=== PATIENT | male | born 1940 | race Caucasian/White ===

== ENCOUNTER 2016-10-02 02:27 | Observation (INO) | payer OTHER ==
[~2016-10-02] VITALS: Ht 165.1 cm; Wt 90.0 kg
[2016-10-02] VITALS (8 sets, daily range): BP systolic 113–166; BP diastolic 66–91; PULSE 67–84; RESP 16–20; TEMP 96.1–98.8; O2SAT 94–97
[~2016-10-02 02:27] MED LIST: ALBU0.08 NEB; ALPR.25 PO; AMLO5 PO; CARV6.25 PO; COUM4TAB PO; COUM5TAB PO; CYAN100025 SL; FURO1TAB60 PO; GABA600T PO; GLUC1000 PO; MAGN400T2 PO; NITR1SUB3 SL; NOVORP2 SQ; POTA1TAB4 PO; PROT40TA PO; RAMI5CAP PO; SERT-132 PO; TAMS5CAP PO; VITA10003 PO
[2016-10-02] MEDS ORDERED: SODIUM CHLORIDE 0.9% FLUSH 5 ML FLUSH IVF PRN (02:45)
--- NOTE | 2016-10-02 02:56 | PD ---
HPI Chief Complaint: Altered Mental Status Time Seen by Provider: 02:41 Travel History International Travel<30 days: No Contact w/Intl Traveler<30days: No Traveled to known affect area: No History of Present Illness HPI 76-year-old male with history of previous stroke with mild left-sided deficits, presents to the ER today brought in by EMS because patient has been having episodes of disorientation according to his . Patient denies any issues on initial evaluation. has stated that the patient has been having childlike behavior at times. This is a difference from baseline. Modifying Factors: None Associated Signs & Symptoms: Intermittent disorientation Risk Factors: Previous stroke PFSH Past Medical History Hx Anticoagulant Therapy: Yes Anemia: Yes Arthritis: Yes Asthma: No Atrial Fibrillation: Yes Autoimmune Disease: No Blood Disorders: No Anxiety: No Depression: No Heart Rhythm Problems: No Cancer: Yes (SKIN CANCER) Cardiac Catheterization: Yes Cardiovascular Problems: Yes High Cholesterol: Yes Chemotherapy: No Chest Pain: No Congestive Heart Failure: Yes COPD: Yes Cerebrovascular Accident: No Coronary Artery Disease: Yes Diabetes: Yes (TYPE 2) Patient Takes Glucophage: No Diminished Hearing: Yes Endocrine: Yes Gastrointestinal Disorders: Yes (DM, GERD) GERD: Yes Glaucoma: Yes ("GOING BLIND") Genitourinary: No Headaches: Yes Hepatitis: No Hiatal Hernia: No Heparin Induced Thrombocytopen: No Hypertension: Yes Immune Disorder: No Implanted Vascular Access Dvce: Yes Kidney Stones: No Medical other: Yes (ELEVATED CHOLESTEROL, AAA, RESTLESS LEG SYNDROME, ) Musculoskeletal: Yes Neurologic: Yes Reproductive: No Respiratory: Yes Immunizations Current: Yes Migraines: No Myocardial Infarction: Yes (X 3) Radiation Therapy: No Renal Failure: No Seizures: No Shingles: Yes Sickle Cell Disease: No Sleep Apnea: No Thyroid Disease: Yes (THYROID NODULE) Triglycerides - High: Yes Ulcer: Yes Tetanus Vaccination: > 5 Years Influenza Vaccination: Yes PNEUMOCCOCAL Vaccine (Year): 2 Past Surgical History Abdominal Surgery: No AICD: No Appendectomy: No Arteriovenous Shunt: No Body Medical Devices: STENTS X 6 AND MECHANICAL VALVE Cardiac Surgery: Yes (sep 26 2000 aortic valve replacement [facility]) Cholecystectomy: No Coronary Artery Bypass Graft: Yes (TRIPLE BYPASS, REPLACED AORTIC VALVE IN 2000 ) Coronary Stent: Yes (UNKOWN AMOUNT OF STENTS PLACED ? 6) Ear Surgery: No Endocrine Surgery: No Eye Surgery: No Genitourinary Surgery: No Gynecologic Surgery: No Insulin Pump: No Joint Replacement: No Neurologic Surgery: No Oral Surgery: No Pacemaker: No Thoracic Surgery: No Valve Replacement: Yes (AORTIC) Other Surgery: Yes (OPEN HEART SURGERY ,AORTIC VALVE REPLACEMENT 2004) Family History Family Myocardial Infarction: Yes (MOTHER) Social History Alcohol Use: No Tobacco Use: No Substance Use: No Allergies-Medications (Allergen,Severity, Reaction): Coded Allergies: Morphine (Verified Allergy, Severe, "I GO CRAZY", 07/14/16) Nonsteroidal Anti-Inflammatory Agts (Verified Allergy, Severe, 07/14/16) CAN NOT TAKE BC HIS KIDNEYS ARE NOT FX CORRECTLY Penicillin (Verified Allergy, Severe, "I GO CRAZY", 07/14/16) Vistaril (Verified Allergy, Severe, Tachycardia, 07/14/16) Haldol (Verified Allergy, Unknown, UNKNOWN, 07/14/16) Codeine (Verified Adverse Reaction, Intermediate, "LOOPY", 07/14/16) MRI PRECAUTION (Verified Adverse Reaction, Unknown, 04/06/04 (ME) PER SARIAH DONOHUE CLEARED PT ( PT CLAUSTO), 07/14/16) Reported Meds & Prescriptions Reported Meds & Active Scripts Active Reported Atorvastatin (Atorvastatin Calcium) 80 Mg Tab 80 Mg PO DAILY Isosorbide Mononitrate ER (Isosorbide Mononitrate) 60 Mg Tab 60 Mg PO DAILY Xanax (Alprazolam) 0.25 Mg Tab 0.25 Mg PO Q8H PRN Sertraline (Sertraline HCl) 50 Mg Tab 50 Mg PO DAILY Ramipril 5 Mg Cap 5 Mg PO DAILY Protonix (Pantoprazole Sodium) 40 Mg Tab 40 Mg PO DAILY Lasix (Furosemide) 40 Mg Tab 40 Mg PO DAILY K-Tab (Potassium Chloride) 20 Meq Tab 20 Meq PO BID Glucophage (Metformin HCl) 1,000 Mg Tab 1,000 Mg PO BIDPC With a meal Gabapentin 600 Mg Tab 300 Mg PO QID Flomax (Tamsulosin HCl) 0.4 Mg Cap 0.4 Mg PO HS Vitamin D-3 (Cholecalciferol) 1,000 Unit Tab 2,000 Units PO DAILY Coreg (Carvedilol) 6.25 Mg Tab 3.125 Mg PO BID Novolin R Inj (Insulin Human Regular) 1,000 Unit/10 Ml Vial 0 SQ DIRECTED Sliding Scale As Directed. Nitroglycerin SL (Nitroglycerin) 0.4 Mg Subl 0.4 Mg SL DIRECTED PRN ONE TABLET UNDER THE TONGUE NEEDED FOR CHEST PAIN, MAY REPEAT EVERY FIVE MINUTES FOR A TOTAL OF 3 DOSES OR CALL 911 IF NO RELIEF Magnesium Oxide 400 Mg Tab 400 Mg PO BID B-12 (Cyanocobalamin) 1,000 Mcg Subl 1,000 Mcg SL DAILY Coumadin (Warfarin) 4 Mg Tab 4 Mg PO DIRECTED Coumadin (Warfarin) 5 Mg Tab 5 Mg PO DIRECTED Review of Systems ROS Limitations: Altered Mental Status Except as stated in HPI: all other systems reviewed are Neg Physical Exam Narrative GENERAL: Well-nourished, well-developed elderly white male patient in no acute distress. Awake, alert, oriented 3. SKIN: Warm and dry. HEAD: Normocephalic. EYES: No scleral icterus. No injection or drainage. NECK: Supple, trachea midline. CARDIOVASCULAR: Regular rate and rhythm without murmurs, gallops, or rubs. RESPIRATORY: Breath sounds equal bilaterally. No accessory muscle use. GASTROINTESTINAL: Abdomen soft, non-tender, nondistended. MUSCULOSKELETAL: No cyanosis, or edema. BACK: Nontender without obvious deformity. No CVA tenderness. NEUROLOGICAL: Awake and alert. Mild left facial droop. Mild left sided weakness. Normal speech. Data Data Last Documented VS Vital Signs Date Time Temp Pulse Resp B/P Pulse Ox O2 Delivery O2 Flow Rate FiO2 10/02/16 04:52 84 16 123/75 96 Room Air 10/02/16 02:30 98.1 Orders Electrocardiogram (10/02/16 02:37) Alcohol (Ethanol) (10/02/16 02:37) Ammonia (10/02/16 02:37) Complete Blood Count With Diff (10/02/16 02:37) Comprehensive Metabolic Panel (10/02/16 02:37) Drug Screen, Random Urine (10/02/16 02:37) Prothrombin Time / Inr (Pt) (10/02/16 02:37) Act Partial Throm Time (Ptt) (10/02/16 02:37) Troponin I (10/02/16 02:37) Thyroid Stimulating Hormone (10/02/16 02:37) Lactic Acid Sepsis Protocol (10/02/16 02:37) Urinalysis - C+S If Indicated (10/02/16 02:37) Blood Culture (10/02/16 02:37) Chest, Single Ap (10/02/16 02:37) Ct Brain W/O Iv Contrast(Rout) (10/02/16 02:37) Blood Glucose (10/02/16 02:37) Ecg Monitoring (10/02/16 02:37) Iv Access Insert/Monitor (10/02/16 02:37) Cath For Specimen (10/02/16 02:37) Oximetry (10/02/16 02:37) Sodium Chloride 0.9% Flush (Ns Flush) (10/02/16 02:45) Admit Order (Ed Use Only) (10/02/16 04:57) Labs Laboratory Tests Test 10/02/16 10/02/16 10/02/16 02:47 02:50 02:54 Sodium Level 141 MEQ/L Potassium Level 3.3 MEQ/L Chloride Level 104 MEQ/L Carbon Dioxide Level 26.7 MEQ/L Anion Gap 10 MEQ/L Blood Urea Nitrogen 18 MG/DL Creatinine 0.91 MG/DL Estimat Glomerular Filtration 81 ML/MIN Rate Random Glucose 142 MG/DL Calcium Level 9.3 MG/DL Total Bilirubin 0.7 MG/DL Aspartate Amino Transf 17 U/L (AST/SGOT) Alanine Aminotransferase 18 U/L (ALT/SGPT) Alkaline Phosphatase 129 U/L Troponin I 0.03 NG/ML Total Protein 7.2 GM/DL Albumin 3.6 GM/DL Thyroid Stimulating Hormone 2.100 uIU/ML 3rd Gen Ethyl Alcohol Level LESS THAN 3 MG/DL White Blood Count 9.6 TH/MM3 Red Blood Count 5.56 MIL/MM3 Hemoglobin 14.9 GM/DL Hematocrit 45.1 % Mean Corpuscular Volume 81.0 FL Mean Corpuscular Hemoglobin 26.7 PG Mean Corpuscular Hemoglobin 33.0 % Concent Red Cell Distribution Width 15.5 % Platelet Count 220 TH/MM3 Mean Platelet Volume 9.9 FL Neutrophils (%) (Auto) 66.0 % Lymphocytes (%) (Auto) 23.1 % Monocytes (%) (Auto) 8.4 % Eosinophils (%) (Auto) 1.3 % Basophils (%) (Auto) 1.2 % Neutrophils # (Auto) 6.4 TH/MM3 Lymphocytes # (Auto) 2.2 TH/MM3 Monocytes # (Auto) 0.8 TH/MM3 Eosinophils # (Auto) 0.1 TH/MM3 Basophils # (Auto) 0.1 TH/MM3 CBC Comment DIFF FINAL Differential Comment Prothrombin Time 20.6 SEC Prothromb Time International 1.8 RATIO Ratio Activated Partial 25.4 SEC Thromboplast Time Urine Color LIGHT-YELLOW Urine Turbidity CLEAR Urine pH 7.0 Urine Specific [place] 1.008 Urine Protein NEG mg/dL Urine Glucose (UA) NEG mg/dL Urine Ketones NEG mg/dL Urine Occult Blood NEG Urine Nitrite NEG Urine Bilirubin NEG Urine Urobilinogen LESS THAN 2.0 MG/DL Urine Leukocyte Esterase NEG Urine WBC LESS THAN 1 /hpf Microscopic Urinalysis Comment CATH-CULT NOT IND Urine Opiates Screen NEG Urine Barbiturates Screen NEG Urine Amphetamines Screen NEG Urine Benzodiazepines Screen NEG Urine Cocaine Screen NEG Urine Cannabinoids Screen NEG Ammonia 10 MCMOL/L MDM Medical Decision Making Medical Screen Exam Complete: Yes Emergency Medical Condition: Yes Medical Record Reviewed: Yes Interpretation(s) Laboratory Tests Test 10/02/16 10/02/16 10/02/16 02:47 02:50 02:54 Potassium Level 3.3 MEQ/L (3.5-5.1) Estimat Glomerular Filtration 81 ML/MIN (>89) Rate Random Glucose 142 MG/DL (74-106) Alkaline Phosphatase 129 U/L (45-117) Mean Corpuscular Hemoglobin 26.7 PG (27.0-34.0) Monocytes (%) (Auto) 8.4 % (0.0-8.0) Prothrombin Time 20.6 SEC (9.8-11.6) Ammonia 10 MCMOL/L (11-32) Differential Diagnosis Altered mental statusacute CVA versus metabolic issues versus dehydration versus sepsis Narrative Course Lab work did not show any signs of significant metabolic issues. Vital signs are stable in the ER. CT the brain is negative. Patient's comes in and I talked her further and it appears that she feels that he was more lethargic before she called EMS and she was concerned that he may have had a TIA. At this point, my plan would be to admit the patient for further observation. Case is discussed with Dr. Gurrola for admission. Diagnosis Primary Impression: ALTERED MENTAL STATUS, UNSPECIFIED Admitting Information Admitting Physician Requests: Admit Prachi Alejandro MD Oct 02, 2016 02:56
[2016-10-02] MEDS ORDERED: ISOS60TA PO (03:24)
[2016-10-02] MEDS ORDERED: ATOR1TAB18 PO (03:24)
[2016-10-02 03:28] LABS: AUTOMATED NEUTROPHIL # 6.4 TH/MM3 (1.8-7.7); BASOPHIL # 0.1 TH/MM3 (0-0.2); BASOPHIL % 1.2 % (0.0-2.0); EOSINOPHIL # 0.1 TH/MM3 (0-0.4); EOSINOPHIL % 1.3 % (0.0-4.0); HEMATOCRIT 45.1 % (39.0-51.0); HEMO FLAGS DIFF FINAL; LYMPH % 23.1 % (9.0-44.0); LYMPHOCYTE # 2.2 TH/MM3 (1.0-4.8); MEAN CORPUSCULAR HEMOGLOBIN 26.7 PG (27.0-34.0); MONO % 8.4 % (0.0-8.0); PLATELET COUNT 220 TH/MM3 (150-450); RED BLOOD COUNT 5.56 MIL/MM3 (4.50-5.90); RED CELL DISTRIBUTION WIDTH 15.5 % (11.6-17.2); WHITE BLOOD COUNT 9.6 TH/MM3 (4.0-11.0)
[2016-10-02 03:35] LABS: AMPHETAMINE, URINE NEG (NEG); BARBITURATES, URINE NEG (NEG); COCAINE, URINE NEG (NEG)
[2016-10-02 03:36] LABS: BLOOD, URINE NEG (NEG); COMMENT (UR) CATH-CULT NOT IND; CULTURE IF INDICATED CATH CULTURE NOT IND; GLUCOSE,URINE NEG (NEG); KETONE, URINE NEG (NEG); NITRITE,URINE NEG (NEG); URINE COLOR LIGHT-YELLOW (YELLW/STRAW)
--- NOTE | 2016-10-02 03:41 | RADRPT ---
EXAM DATE/TIME: 10/02/2016 02:52 [facility] COMPARISON: CHEST SINGLE AP, June 30, 2016, 9:05. INDICATIONS : Syncopal episode. MEDICAL HISTORY : None. SURGICAL HISTORY : CABG. Valve repair ENCOUNTER: Initial ACUITY: 1 day PAIN SCORE: 0/10 LOCATION: Bilateral chest FINDINGS: The cardiac silhouette is normal in transverse diameter. Median sternotomy wires are present. There i s prominence of the aortic knob is with calcification characteristic of atherosclerotic vascular dise ase. The lungs are free of acute parenchymal opacity. No effusions are identified. Calcified granulom a is present in the right lung. CONCLUSION: 1. Cardiomegaly. No acute pulmonary disease. Trino Guillermo MD on October 02, 2016 at 3:40 Board Certified Radiologist. This report was verified electronically.
--- NOTE | 2016-10-02 03:47 | RADRPT ---
EXAM DATE/TIME: 10/02/2016 03:06 [facility] COMPARISON: CT BRAIN W/O CONTRAST, July 29, 2016, 8:06. INDICATIONS : Altered mental status. RADIATION DOSE: 56.35 CTDIvol (mGy) MEDICAL HISTORY : Cardiovascular disease. Chronic obstructive pulmonary disease. Diabetes mellitus type 2.Hypertension, ME, atrial fibrillation SURGICAL HISTORY : CABG aortic valve replacement, 6 coronary stents ENCOUNTER: Initial ACUITY: 1 day PAIN SCALE: Non-responsive LOCATION: cranial TECHNIQUE: Multiple contiguous axial images were obtained of the head. Using automated exposure control and adj ustment of the mA and/or kV according to patient size, radiation dose was kept as low as reasonably a chievable to obtain optimal diagnostic quality images. FINDINGS: Noncontrast axial head CT demonstrates the ventricles to be enlarged with a prominent sulcal pattern compatible with atrophy. No acute intracranial hemorrhage, acute cortical infarction, mass or midline shift is seen. There is old infarct in the right frontal region. Posterior fossa structures are unre markable. Bone windows demonstrate no abnormality. CONCLUSION: Atrophy. No evidence of acute intracranial pathology. Trino Guillermo MD on October 02, 2016 at 3:44 Board Certified Radiologist. This report was verified electronically.
[2016-10-02 03:49] LABS: APTT (PATIENT) 25.4 SEC (24.3-30.1); INTERNATIONAL NORMALIZED RATIO 1.8 RATIO; PROTHROMBIN TIME - PATIENT 20.6 SEC (9.8-11.6)
[2016-10-02 03:59] LABS: ALT (GPT) 18 U/L (12-78); ANION GAP 10 MEQ/L (5-15); AST (GOT) 17 U/L (15-37); BICARBONATE 26.7 MEQ/L (21.0-32.0); BLOOD UREA NITROGEN 18 MG/DL (7-18); CHLORIDE 104 MEQ/L (98-107); GLOMERULAR FILTRATION RATE 81 ML/MIN (>89); POTASSIUM 3.3 MEQ/L (3.5-5.1); SODIUM (NA) 141 MEQ/L (136-145)
[2016-10-02 04:09] LABS: ALKALINE PHOSPHATASE 129 U/L (45-117); TOTAL BILIRUBIN ADULT 0.7 MG/DL (0.2-1.0)
[2016-10-02] MEDS ORDERED: ACETAMINOPHEN 325 MG TAB PO PRN (05:15)
[2016-10-02] MEDS ORDERED: SODIUM CHLORIDE 0.9% FLUSH 5 ML FLUSH FLUSH PRN (05:15)
[2016-10-02] MEDS ORDERED: BISACODYL 10 MG SUPP PR PRN (05:15)
[2016-10-02] MEDS ORDERED: ONDANSETRON HCL 4 MG/2 ML VIAL IVP PRN (05:15)
--- NOTE | 2016-10-02 05:28 | HHI.HP ---
[facility] Service [facility] Primary Care Physician Non-Staff Admission Diagnosis altered mental status Diagnoses: (1) Encephalopathy Diagnosis: Principal (2) TIA (transient ischemic attack) Diagnosis: Principal (3) A-fib Diagnosis: Principal (4) Chronic anticoagulation Diagnosis: Principal (5) DM (diabetes mellitus) Diagnosis: Principal Travel History International Travel<30 Days: No Contact w/Intl Traveler <30 Da: No Traveled to Known Affected Are: No History of Present Illness This is a 76-year-old male with a PMH of HTN, A. 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 Per , pt has been "irritable" since yesterday, states he fell asleep abruptly while at breakfast and acting fidgety. No change in weakness/facial droop from previous CVA. Denies fever, chills, chest pain or seizure activity. On arrival , BP 166/84, HR 73, O2 sat 97% on RA, Afebrile. CBC essentially unremarkable. Chemistry unremarkable except for K+ 3.3. Trop 0.03. CXR and CT Head w/ no acute findings. Review of Systems Other ROS: 14 point review of systems otherwise negative. Past Family Social History Past Medical History PMH: HTN, A. 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, DM and CAD Past Surgical History PAST SURGICAL HISTORY: Cardiac Stent, Mechanical Aortic Valve, CABG Allergies: Coded Allergies: Morphine (Verified Allergy, Severe, "I GO CRAZY", 07/14/16) Nonsteroidal Anti-Inflammatory Agts (Verified Allergy, Severe, 07/14/16) CAN NOT TAKE BC HIS KIDNEYS ARE NOT FX CORRECTLY Penicillin (Verified Allergy, Severe, "I GO CRAZY", 07/14/16) Vistaril (Verified Allergy, Severe, Tachycardia, 07/14/16) Haldol (Verified Allergy, Unknown, UNKNOWN, 07/14/16) Codeine (Verified Adverse Reaction, Intermediate, "LOOPY", 07/14/16) MRI PRECAUTION (Verified Adverse Reaction, Unknown, 04/06/04 (ME) PER SARIAH DONOHUE CLEARED PT ( PT CLAUSTO), 07/14/16) Family History PAST FAMILY HISTORY: Reviewed. No h/o DM or CAD Social History PAST SOCIAL HISTORY: Negative for alcohol, tobacco or drugs. Physical Exam Vital Signs Vital Signs Date Time Temp Pulse Resp B/P Pulse Ox O2 Delivery O2 Flow Rate FiO2 10/02/16 04:52 84 16 123/75 96 Room Air 10/02/16 02:30 98.1 73 16 166/84 97 Physical Exam PE: GENERAL: Elderly white male in no acute distress. at bedside. HEENT: PERRLA, EOMI. No scleral icterus or conjunctival pallor. No lid lag. Facial droop at baseline. RESPIRATORY: No obvious rhonchi or wheezing. Clear to auscultation. Breath sounds equal bilaterally. GASTROINTESTINAL: Abdomen soft, non-tender, nondistended. BS normal. MUSCULOSKELETAL: Extremities without clubbing, cyanosis, or edema. No obvious deformities. NEUROLOGICAL: Awake, alert. No focal neurologic deficits. Moving both upper and lower extremities spontaneously. Laboratory Laboratory Tests Test 10/02/16 10/02/16 10/02/16 02:47 02:50 02:54 Sodium Level 141 Potassium Level 3.3 Chloride Level 104 Carbon Dioxide Level 26.7 Anion Gap 10 Blood Urea Nitrogen 18 Creatinine 0.91 Estimat Glomerular Filtration 81 Rate Random Glucose 142 Calcium Level 9.3 Total Bilirubin 0.7 Aspartate Amino Transf 17 (AST/SGOT) Alanine Aminotransferase 18 (ALT/SGPT) Alkaline Phosphatase 129 Troponin I 0.03 Total Protein 7.2 Albumin 3.6 Thyroid Stimulating Hormone 2.100 3rd Gen Ethyl Alcohol Level LESS THAN 3 White Blood Count 9.6 Red Blood Count 5.56 Hemoglobin 14.9 Hematocrit 45.1 Mean Corpuscular Volume 81.0 Mean Corpuscular Hemoglobin 26.7 Mean Corpuscular Hemoglobin 33.0 Concent Red Cell Distribution Width 15.5 Platelet Count 220 Mean Platelet Volume 9.9 Neutrophils (%) (Auto) 66.0 Lymphocytes (%) (Auto) 23.1 Monocytes (%) (Auto) 8.4 Eosinophils (%) (Auto) 1.3 Basophils (%) (Auto) 1.2 Neutrophils # (Auto) 6.4 Lymphocytes # (Auto) 2.2 Monocytes # (Auto) 0.8 Eosinophils # (Auto) 0.1 Basophils # (Auto) 0.1 CBC Comment DIFF FINAL Differential Comment Prothrombin Time 20.6 Prothromb Time International 1.8 Ratio Activated Partial 25.4 Thromboplast Time Urine Color LIGHT-YELLOW Urine Turbidity CLEAR Urine pH 7.0 Urine Specific [place] 1.008 Urine Protein NEG Urine Glucose (UA) NEG Urine Ketones NEG Urine Occult Blood NEG Urine Nitrite NEG Urine Bilirubin NEG Urine Urobilinogen LESS THAN 2.0 Urine Leukocyte Esterase NEG Urine WBC LESS THAN 1 Microscopic Urinalysis Comment CATH-CULT NOT IND Urine Opiates Screen NEG Urine Barbiturates Screen NEG Urine Amphetamines Screen NEG Urine Benzodiazepines Screen NEG Urine Cocaine Screen NEG Urine Cannabinoids Screen NEG Ammonia 10 Date/Time Procedure Status Source Growth 10/02/16 02:55 Aerobic Blood Culture Received Blood Peripheral Pending 10/02/16 02:55 Anaerobic Blood Culture Received Blood Peripheral Pending Result Diagram: 10/02/16 0250 10/02/16 0247 Assessment and Plan Problem List: (1) Encephalopathy ICD Code: G93.40 Status: Acute (2) TIA (transient ischemic attack) ICD Code: G45.9 Status: Acute (3) A-fib ICD Code: I48.91 Status: Acute (4) Chronic anticoagulation ICD Code: Z79.01 Status: Acute (5) DM (diabetes mellitus) ICD Code: E11.9 Status: Acute Assessment and Plan A/P: 1. Encephalopathy: Unclear etiology, possibly combination of underlying deficit from previous stroke w/ TIA? CT Head w/ no acute findings, images reviewed by me. CXR negative. U/a negative. Afebrile, no leukoctosis. Labs essentially unremarkable. 2. TIA: CT Head w/ no acute findings, images reviewed. MRI Precautions, will obtain Carotid US. Resume home Statin and Coumadin. 3. A-fib: Chronic. On Coumadin. INR 1.8. Resume Coumadin, recheck INR in am. 4. DM: Sliding scale w/ Accu-Cheks. Hold Metformin for now. 5. DVT Prophylaxis: On Coumadin 6. Social work for d/c planning as needed. 7. Case discussed w/ ER physician at length. Ame Gurrola MD Oct 02, 2016 05:28
[2016-10-02] MEDS ORDERED: DO NOT ADM ANY ANTICOAGULANT DRUGS XX PRN (05:30)
[2016-10-02] MEDS: SODIUM CHLORIDE 0.9% FLUSH 5 ML FLUSH FLUSH SCH ×2 (08:29→21:45)
[2016-10-02] MEDS: SODIUM CHLOR 0.9% 1000 ML INJ 1,000 ML IV SCH ×2 (08:30→12:36)
--- NOTE | 2016-10-02 09:54 | HHI.PR ---
Subjective Remarks Follow up for AMS. The patient is awake, alert, oriented x4. He admits to feeling confused and slightly drowsy yesterday but he doesn't know what happened. He feels back to normal today. He denies any recent fevers/chills, congestion, cough, sore throat, chest pain, shortness of breath, abdominal pain , nausea/vomiting, constipation or urinary complaints. He denies any worsening of his left sided weakness since his stroke, however states probably over the past 3-4 weeks he hasn't been walking as good as usual. He denies any back pain or bladder/bowel incontinence. The patient denies any recent changes in medications. Objective Vitals Vital Signs Date Time Temp Pulse Resp B/P Pulse Ox O2 Delivery O2 Flow Rate FiO2 10/02/16 06:43 97.9 84 18 163/91 97 10/02/16 04:52 84 16 123/75 96 Room Air 10/02/16 02:30 98.1 73 16 166/84 97 Result Diagram: 10/02/16 0250 10/02/16 0247 Imaging 10/02/16 - Head CT with atrophy, no evidence of acute intracranial pathology. 10/02/16 - CXR with cardiomegaly, no acute pulmonary disease Objective Remarks GENERAL: Well-nourished, well-developed pleasant elderly male patient in [facility]. SKIN: Warm and dry. No rash. HEAD: Normocephalic. Atraumatic. EYES: Pupils equal and round. No scleral icterus. No injection or drainage. ENT: No nasal bleeding or discharge. Mucous membranes pink and moist. NECK: Supple. Trachea midline. CARDIOVASCULAR: Irregular rate and rhythm. S1, S2 noted. Mechanical click noted. RESPIRATORY: No accessory muscle use. Clear to auscultation. Breath sounds equal bilaterally. GASTROINTESTINAL: Abdomen soft, non-tender, nondistended. Normoactive bowel sounds x4. MUSCULOSKELETAL: No obvious deformities. Extremities without clubbing, cyanosis , or edema. NEUROLOGICAL: Awake and alert, oriented x4. No obvious cranial nerve deficits. Motor grossly within normal limits. 5/5 muscle strength in bilateral upper and lower extremities. Normal speech. Very slight facial droop. PSYCHIATRIC: Appropriate mood and affect; insight and judgment normal. Medications and IVs Current Medications Medications (Trade) Dose Ordered Sig/Jacek Route Start Time Stop Time Status Last Admin (NS 1000 ml Inj) 1,000 ml @ 100 mls/hr Q10H IV 10/02/16 05:02 10/02/16 08:30 (NS Flush) 2 ml UNSCH PRN FLUSH 10/02/16 05:15 (NS Flush) 2 ml BID FLUSH 10/02/16 09:00 10/02/16 08:29 (Zofran Inj) 4 mg Q6H PRN IVP 10/02/16 05:15 (Dulcolax Supp) 10 mg DAILY PRN MD 10/02/16 05:15 (Tylenol) 650 mg Q6H PRN PO 10/02/16 05:15 (Lipitor) 80 mg DAILY PO 10/02/16 09:00 (Neurontin) 300 mg QID PO 10/02/16 09:00 (Protonix) 40 mg DAILY PO 10/02/16 09:00 (Flomax) 0.4 mg HS PO 10/02/16 21:00 (Coumadin) 5 mg SuWeFr@16 PO 10/02/16 16:00 (Coumadin) 4 mg MoTuThSa@16 PO 10/03/16 16:00 Miscellaneous Information ALL NURSING DEPARTME... UNSCH PRN XX 10/02/16 05:30 10/03/16 05:29 (Coumadin Booklet) 1 ONCE ONCE XX 10/02/16 16:00 10/02/16 16:01 (Coreg) 3.125 mg BID PO 10/02/16 09:00 (Imdur) 60 mg DAILY PO 10/02/16 09:00 (Zoloft) 50 mg DAILY PO 10/02/16 09:00 Urinary Catheter: No Vascular Central Line Catheter: No A/P Problem List: (1) Encephalopathy ICD Code: G93.40 Status: Acute (2) TIA (transient ischemic attack) ICD Code: G45.9 Status: Acute (3) A-fib ICD Code: I48.91 Status: Acute (4) Chronic anticoagulation ICD Code: Z79.01 Status: Acute (5) DM (diabetes mellitus) ICD Code: E11.9 Status: Acute Assessment and Plan 76-year-old male with a PMH of HTN, A. 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 Per , pt has been "irritable" since yesterday, states he fell asleep abruptly while at breakfast and acting fidgety. Encephalopathy: Unclear etiology, possibly combination of underlying deficit from previous stroke w/ new TIA. CT Head w/ no acute findings, images reviewed by me. CXR negative. U/a negative. Afebrile, no leukocytosis. Labs essentially unremarkable. Consult PT. Check orthostatics. TIA: CT Head w/ no acute findings, images reviewed. Unable to have MRI with mechanical valve. Carotid U/S 07/28/16 with mild atherosclerotic changes, no hemodynamically significant stenosis. Echo 07/29/16 with EF 55-60%, normal functioning aortic valve prosthesis, trace AR, mild TR. Resume home Statin and Coumadin. A-fib: Chronic. On Coumadin. INR 1.8. Resume Coumadin, monitor INR. DM: Sliding scale w/ Accu-Cheks. Hold Metformin for now. DVT Prophylaxis: On Coumadin Attending Statement The exam, history, and the medical decision-making described in the above note were completed with the assistance of the mid-level provider. I reviewed and agree with the findings presented. I attest that I had a [id number] encounter with the patient on the same day, and personally performed and documented my assessment and findings in the medical record. Juanita Chin PA-C Oct 02, 2016 09:54 Eitan Doran MD Oct 10, 2016 18:57
[2016-10-02] MEDS ORDERED: GLUCAGON 1 MG/ML VIAL OTHER PRN (10:00)
[2016-10-02] MEDS ORDERED: DEXTROSE 50% IN WATER 50 ML VIAL(D50) IV PUSH PRN (10:00)
[2016-10-02] MEDS: SERTRALINE HCL 50 MG TAB PO SCH (10:36)
[2016-10-02] MEDS: ISOSORBIDE MONONITRATE 60 MG TAB PO SCH (10:36)
[2016-10-02] MEDS: PANTOPRAZOLE SOD 40 MG DELAYED RELEASE TAB PO SCH (10:36)
[2016-10-02] MEDS: ATORVASTATIN 80 MG TAB PO SCH (10:36)
[2016-10-02] MEDS: CARVEDILOL 3.125 MG TAB PO SCH ×2 (10:37→21:45)
[2016-10-02] MEDS: GABAPENTIN 300 MG CAP PO SCH ×4 (10:37→21:45)
[2016-10-02] MEDS: INSULIN ASPART SUPPLEMENTAL SCALE SQ SCH ×3 (12:34→21:48)
[2016-10-02] MEDS ORDERED: WARFARIN SOD 5 MG TAB PO SCH (16:00)
--- NOTE | 2016-10-02 16:10 | EKG ---
Date Performed: 10/02/2016 Time Performed: 02:58:50 PTAGE: 76 years EKG: Sinus rhythm BORDERLINE RIGHT AXIS DEVIATION INTRAVENTRICULAR CONDUCTION DELAY MINIMAL VOLTAGE CRITERIA FOR LVH, CONSIDER NORMAL VARIANT There appears to be pauses with junctional escapes at times LVH appears to be new since prior tracing, as is Left bundle branch block Diffuse ST-T wave changes probably secondary to block, but cannot rule out ischemia Clinical correlation strongly recommended ABNORMAL ECG PREVIOUS TRACING : 07/28/2016 12.37 DOCTOR: Filippo Lopez Interpretating Date/Time 10/02/2016 16:09:10
[2016-10-02] MEDS ORDERED: POTASSIUM CHLORIDE 10 MEQ CONTROLLED RELEASE TAB PO ONE (17:15)
[2016-10-02 20:35] LABS: MAGNESIUM 1.5 MG/DL (1.5-2.5)
[2016-10-02] MEDS ORDERED: TAMSULOSIN HCL 0.4 MG CAP PO SCH (21:00)
[2016-10-03 04:38] VITALS: BP 132/67; PULSE 87; RESP 18; TEMP 98.7; O2SAT 97
[2016-10-03 05:19] LABS: INTERNATIONAL NORMALIZED RATIO 2.2 RATIO; PROTHROMBIN TIME - PATIENT 24.9 SEC (9.8-11.6)
[2016-10-03 05:24] LABS: AUTOMATED NEUTROPHIL # 4.8 TH/MM3 (1.8-7.7); BASOPHIL # 0.1 TH/MM3 (0-0.2); BASOPHIL % 0.9 % (0.0-2.0); EOSINOPHIL # 0.2 TH/MM3 (0-0.4); EOSINOPHIL % 2.6 % (0.0-4.0); HEMATOCRIT 35.1 % (39.0-51.0); HEMO FLAGS DIFF FINAL; LYMPH % 27.2 % (9.0-44.0); LYMPHOCYTE # 2.2 TH/MM3 (1.0-4.8); MEAN CELL VOLUME 81.1 FL (80.0-100.0); MEAN CORPUSCULAR HEMOGLOBIN 26.3 PG (27.0-34.0); MEAN CORPUSCULAR HGB CONC 32.5 % (32.0-36.0); MONO % 9.4 % (0.0-8.0); NEUT % 59.9 % (16.0-70.0); PLATELET COUNT 182 TH/MM3 (150-450); RED BLOOD COUNT 4.33 MIL/MM3 (4.50-5.90)
[2016-10-03 05:46] LABS: ALT (GPT) 14 U/L (12-78); ANION GAP 9 MEQ/L (5-15); AST (GOT) 10 U/L (15-37); BICARBONATE 23.8 MEQ/L (21.0-32.0); BLOOD UREA NITROGEN 15 MG/DL (7-18); CHLORIDE 109 MEQ/L (98-107); GLOMERULAR FILTRATION RATE 107 ML/MIN (>89); POTASSIUM 3.3 MEQ/L (3.5-5.1); SODIUM (NA) 142 MEQ/L (136-145)
[2016-10-03 05:48] LABS: ALKALINE PHOSPHATASE 94 U/L (45-117); TOTAL BILIRUBIN ADULT 0.5 MG/DL (0.2-1.0)
[2016-10-03] MEDS: SODIUM CHLOR 0.9% 1000 ML INJ 1,000 ML IV SCH (06:35)
[2016-10-03] MEDS: INSULIN ASPART SUPPLEMENTAL SCALE SQ SCH (06:35)
[2016-10-03] MEDS: SODIUM CHLORIDE 0.9% FLUSH 5 ML FLUSH FLUSH SCH (08:03)
[2016-10-03 08:47] VITALS: BP 136/96; PULSE 80; RESP 18; TEMP 97.9; O2SAT 96
[2016-10-03] MEDS ORDERED: POTASSIUM CHLORIDE 20 MEQ CONTROLLED RELEASE TAB PO ONE (09:00)
[2016-10-03] MEDS ORDERED: MAGNESIUM SULFATE 1 GM PREMIX 100 ML IV ONE (09:00)
[2016-10-03] MEDS: GABAPENTIN 300 MG CAP PO SCH (09:08)
[2016-10-03] MEDS: ISOSORBIDE MONONITRATE 60 MG TAB PO SCH (09:09)
[2016-10-03] MEDS: ATORVASTATIN 80 MG TAB PO SCH (09:09)
[2016-10-03] MEDS: CARVEDILOL 3.125 MG TAB PO SCH (09:09)
[2016-10-03] MEDS: PANTOPRAZOLE SOD 40 MG DELAYED RELEASE TAB PO SCH (09:09)
[2016-10-03] MEDS: SERTRALINE HCL 50 MG TAB PO SCH (09:09)
--- NOTE | 2016-10-03 09:48 | HHI.PR ---
Subjective Remarks Follow-up for his encephalopathy. Patient is oriented 3. He cannot really recall why he came to the hospital. He denies any new weakness or paresthesias. He feels like he is at his baseline today. He states he's been told he can and he can't have MRIs, so he is not sure. He states that his Coumadin level is followed by his boiler tester Dr. Chicas, states his INR is usually very labile and has had numerous dose adjustments in the last year. He feels like he walked ok with PT yesterday. He has no acute complaints at this time. Objective Vitals Vital Signs Date Time Temp Pulse Resp B/P Pulse Ox O2 Delivery O2 Flow Rate FiO2 10/03/16 08:47 97.9 80 18 136/96 96 10/03/16 04:38 98.7 87 18 132/67 97 10/02/16 23:29 98.8 68 18 132/66 97 10/02/16 20:26 76 10/02/16 20:17 97.7 67 18 127/69 97 10/02/16 16:00 96.3 77 18 113/66 94 10/02/16 12:00 96.1 76 20 137/80 94 I/O 10/02/16 10/02/16 10/02/16 10/03/16 10/03/16 10/03/16 07:00 15:00 23:00 07:00 15:00 23:00 Intake Total 480 ml 240 ml Output Total 240 ml Balance 240 ml 240 ml Intake Oral 480 ml 240 ml Output Urine Total 240 ml # Voids 1 2 # Bowel Movements 1 Result Diagram: 10/03/16 04310/03/16431 Imaging Last Impressions Head CT 10/02/16236 Signed Impressions: Service Date/Time: Sunday, October 02, 2016 03:06 - CONCLUSION: Atrophy. No evidence of acute intracranial pathology. Trino Guillermo MD Chest X-Ray 10/02/16236 Signed Impressions: Service Date/Time: Sunday, October 02, 2016 02:52 - CONCLUSION: 1. Cardiomegaly. No acute pulmonary disease. Trino Guillermo MD Objective Remarks GENERAL: Well-developed well-nourished. In no acute distress. Oriented 3. SKIN: Warm and dry. No lesions noted. HEENT: Normocephalic. Pupils equal and round. Mucous membranes pink and moist. CARDIOVASCULAR: Irregular rate and rhythm. No murmur appreciated. RESPIRATORY: No accessory muscle use. Clear to auscultation. Breath sounds equal bilaterally. GASTROINTESTINAL: Abdomen soft, non-tender, nondistended. Bowel sounds x4. MUSCULOSKELETAL: No obvious deformities. No clubbing or cyanosis. No edema. NEUROLOGICAL: Awake and alert. Slight facial droop. Moves upper and lower extremities spontaneously. Normal speech. Strength 5/5. PSYCHIATRIC: Appropriate mood and affect; insight and judgment normal. A/P Problem List: (1) Encephalopathy ICD Code: G93.40 Status: Acute (2) TIA (transient ischemic attack) ICD Code: G45.9 Status: Acute (3) A-fib ICD Code: I48.91 Status: Acute (4) Chronic anticoagulation ICD Code: Z79.01 Status: Acute (5) DM (diabetes mellitus) ICD Code: E11.9 Status: Acute Assessment and Plan 76-year-old male with a PMH of HTN, A. 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 Per , pt has been "irritable" since yesterday, states he fell asleep abruptly while at breakfast and acting fidgety. Encephalopathy: Unclear etiology, possibly combination of underlying deficit from previous stroke w/ new TIA. CT Head w/ no acute findings. CXR negative. U/ a negative. Afebrile, no leukocytosis. Labs essentially unremarkable. Consulted PT, no restrictions. Symptoms resolved. TIA: Presented with episode of confusion. INR was a bit low at 1.[address] Head w/ no acute findings. Reportedly unable to have MRI with mechanical valve. Carotid U/S 07/28/16 with mild atherosclerotic changes, no hemodynamically significant stenosis. Echo 07/29/16 with EF 55-60%, normal functioning aortic valve prosthesis, trace AR, mild TR. Continue home Statin and Coumadin. Chronic anticoagulation with history of mechanical valve replacement and A-fib: Chronic. Continue Coumadin. INR 2.2 today. Follow up with cardiology as outpatient for continued INR monitoring and dose adjustment if needed. DM: Sliding scale w/ Accu-Cheks. Hold Metformin for now. Hypokalemia/hypomagnesemia: Potassium 3.3 after replacement, give additional oral replacement. Magnesium 1.5, give IV replacement. Normocytic Anemia: 11.4, previously 13.0 on 07/28/16. No signs of active bleeding. Repeat H&H stable. Neuropathy: On gabapentin 4 times a day, decrease to 3 times a day. DVT Prophylaxis: On Coumadin Discharge Planning Discussed with Dr. Doran Discharge patient to home Condition on discharge: Improved Heart healthy diabetic Diet as tolerated Regular activity Rx written: Follow-up with primary care physician Attending Statement The exam, history, and the medical decision-making described in the above note were completed with the assistance of the mid-level provider. I reviewed and agree with the findings presented. I attest that I had a [id number] encounter with the patient on the same day, and personally performed and documented my assessment and findings in the medical record. Doc Chan Oct 03, 2016 09:48 Eitan Doran MD Oct 11, 2016 00:46
[2016-10-03] MEDS ORDERED: GABA600T PO (10:40)
[2016-10-03 11:05] LABS: HEMATOCRIT 34.5 % (39.0-51.0); REVIEW FLAG FINAL
[2016-10-03] MEDS ORDERED: WARFARIN SOD 4 MG TAB PO SCH (16:00)
--- NOTE | 2016-10-03 19:27 | EKG ---
Date Performed: 10/02/2016 Time Performed: 23:13:35 PTAGE: 76 years EKG: Sinus rhythm WITH OCCASIONAL SUPRAVENTRICULAR PREMATURE COMPLEXES POSSIBLE INFERIOR MYOCARDIAL INFARCTION IVCD DENISHA RDERLINE ECG PREVIOUS TRACING : 10/02/2016 18.58 DOCTOR: Klever Moore Interpretating Date/Time 10/03/2016 19:23:04
--- NOTE | 2016-10-03 19:33 | EKG ---
Date Performed: 10/02/2016 Time Performed: 18:58:12 PTAGE: 76 years EKG: Sinus rhythm WITH OCCASIONAL SUPRAVENTRICULAR PREMATURE COMPLEXES BORDERLINE RIGHT AXIS DEVIATION PROBABLE INFERI OR MYOCARDIAL INFARCTION ABNORMAL ECG NO PREVIOUS TRACING DOCTOR: Klever Moore Interpretating Date/Time 10/03/2016 19:30:37
[2016-10-11] MEDS ORDERED: NITR0.4S (10:49)
[2016-10-11] MEDS ORDERED: [UNRECOGNIZED DRUG - OTHER] (10:49)
[2016-10-11] MEDS ORDERED: TIMO0.5S30 (10:49)
[2016-10-11] MEDS ORDERED: CARB25TA9 (10:49)
[2016-10-11] MEDS ORDERED: WARF-23 (10:49)
[2016-10-11] MEDS ORDERED: POTA20TA5 (10:49)
== END 2016-10-03 12:42 | disposition home or self-care (01) ==
LOC: NEPC 02:27 → NEDA 05:10 → NEPGCP 06:25
PROVIDERS: ADMIT Internal Medicine; ATTEND Internal Medicine
DX: G93.40 Encephalopathy, unspecified (principal); G45.9 Transient cerebral ischemic attack, unspecified; I48.2 Chronic atrial fibrillation; E87.6 Hypokalemia; E83.42 Hypomagnesemia; D64.9 Anemia, unspecified; G62.9 Polyneuropathy, unspecified; I10 Essential (primary) hypertension; J44.9 Chronic obstructive pulmonary disease, unspecified; I25.10 Atherosclerotic heart disease of native coronary artery without angina pectoris; E11.9 Type 2 diabetes mellitus without complications; E78.00 Pure hypercholesterolemia, unspecified; G25.81 Restless legs syndrome; H40.9 Unspecified glaucoma; H91.90 Unspecified hearing loss, unspecified ear; K21.9 Gastro-esophageal reflux disease without esophagitis; I25.2 Old myocardial infarction; M19.90 Unspecified osteoarthritis, unspecified site; Z79.01 Long term (current) use of anticoagulants; Z95.1 Presence of aortocoronary bypass graft; Z95.5 Presence of coronary angioplasty implant and graft; Z95.2 Presence of prosthetic heart valve; Z85.828 Personal history of other malignant neoplasm of skin
CPT/HCPCS: 70450; 71010; 80053; 80307; 81001; 82140; 82550; 82948; 83605; 83735; 84443; 84484; 85014; 85018; 85025; 85610; 85730; 87040; 93005; 97161; 99285; G0378; G8987; G8988; J1815; J3475; J7030; 80320

== ENCOUNTER 2016-10-26 14:09 | Emergency (ER) | payer OTHER ==
[~2016-10-26] VITALS: Ht 170.2 cm; Wt 76.0 kg
[~2016-10-26 14:09] MED LIST changes: -ALBU0.08 NEB; -AMLO5 PO; +ATOR1TAB18 PO; +CARB25TA9; -COUM5TAB PO; +ISOS60TA PO; +NITR0.4S; -NITR1SUB3 SL; +POTA20TA5; +TIMO0.5S30; +WARF-23; +[UNRECOGNIZED DRUG - OTHER]
[2016-10-26 14:18] VITALS: BP 145/68; PULSE 68; RESP 20; TEMP 96.2; O2SAT 96
--- NOTE | 2016-10-26 15:43 | PD ---
HPI Chief Complaint: Fall Time Seen by Provider: 15:38 Travel History International Travel<30 days: No Contact w/Intl Traveler<30days: No Traveled to known affect area: No History of Present Illness HPI Patient comes in by EMS after tripping over his daughter's dog falling backwards hitting his back on a couch and then going to the floor. Patient denies hitting his head or loss of consciousness. Denies any loss of bowel or bladder, numbness or tingling anywhere, chest pain, shortness of breath, or abdominal pain. Patient states he is just concerned as he is on Coumadin. Patient reports tenderness or contusion noted on his upper lumbar/lower thoracic spine. Denies any radiation of the pain. Pain is worse to palpation with certain movement. Patient is doing anything for this prior to coming to the emergency department. Patient reports he does take tramadol at home for pain. PFSH Past Medical History Hx Anticoagulant Therapy: Yes Anemia: Yes Arthritis: Yes Asthma: No Atrial Fibrillation: Yes Autoimmune Disease: No Blood Disorders: No Anxiety: No Depression: No Heart Rhythm Problems: No Cancer: Yes (SKIN CANCER) Cardiac Catheterization: Yes Cardiovascular Problems: Yes High Cholesterol: Yes Chemotherapy: No Chest Pain: No Congestive Heart Failure: Yes COPD: Yes Cerebrovascular Accident: No Coronary Artery Disease: Yes Diabetes: Yes (TYPE 2) Diminished Hearing: Yes Endocrine: Yes Gastrointestinal Disorders: Yes (DM, GERD) GERD: Yes Glaucoma: Yes ("GOING BLIND") Genitourinary: No Headaches: Yes Hepatitis: No Hiatal Hernia: No Heparin Induced Thrombocytopen: No Hypertension: Yes Immune Disorder: No Implanted Vascular Access Dvce: Yes Kidney Stones: No Musculoskeletal: Yes Neurologic: Yes Reproductive: No Respiratory: Yes Immunizations Current: Yes Migraines: No Myocardial Infarction: Yes (X 3) Radiation Therapy: No Renal Failure: No Seizures: No Shingles: Yes Sickle Cell Disease: No Sleep Apnea: No Thyroid Disease: Yes (THYROID NODULE) Triglycerides - High: Yes Ulcer: Yes PNEUMOCCOCAL Vaccine (Year): 2 Past Surgical History Abdominal Surgery: No AICD: No Appendectomy: No Arteriovenous Shunt: No Body Medical Devices: STENTS X 6 AND MECHANICAL VALVE Cardiac Surgery: Yes (sep 26 2000 aortic valve replacement [facility]) Cholecystectomy: No Coronary Artery Bypass Graft: Yes (TRIPLE BYPASS, REPLACED AORTIC VALVE IN 2000 ) Coronary Stent: Yes (UNKOWN AMOUNT OF STENTS PLACED ? 6) Ear Surgery: No Endocrine Surgery: No Eye Surgery: No Genitourinary Surgery: No Gynecologic Surgery: No Insulin Pump: No Joint Replacement: No Neurologic Surgery: No Oral Surgery: No Pacemaker: No Thoracic Surgery: No Valve Replacement: Yes (AORTIC) Other Surgery: Yes (OPEN HEART SURGERY ,AORTIC VALVE REPLACEMENT 2004) Social History Alcohol Use: No Tobacco Use: No Substance Use: No Allergies-Medications (Allergen,Severity, Reaction): Coded Allergies: Morphine (Verified Allergy, Severe, "I GO CRAZY", 10/11/16) Nonsteroidal Anti-Inflammatory Agts (Verified Allergy, Severe, 10/11/16) CAN NOT TAKE BC HIS KIDNEYS ARE NOT FX CORRECTLY Penicillin (Verified Allergy, Severe, "I GO CRAZY", 10/11/16) Vistaril (Verified Allergy, Severe, Tachycardia, 10/11/16) Haldol (Verified Allergy, Unknown, UNKNOWN, 10/11/16) Codeine (Verified Adverse Reaction, Intermediate, "LOOPY", 10/11/16) MRI PRECAUTION (Verified Adverse Reaction, Unknown, 04/06/04 (ME) PER SARIAH DONOHUE CLEARED PT ( PT CLAUSTO), 10/11/16) Reported Meds & Prescriptions Reported Meds & Active Scripts Active Gabapentin 600 Mg Tab 300 Mg PO TID Reported Carbidopa-Levodopa 25-100 Mg Tab Potassium Chloride Microencaps 20 Meq Tab Warfarin 5 Mg Tab Timolol Opth Drops 0.5 % Soln Prodigy No Coding Blood G (Glucose Blood) 1 Malka Malka Nitrostat SL (Nitroglycerin) 0.4 Mg Subl Atorvastatin (Atorvastatin Calcium) 80 Mg Tab 80 Mg PO DAILY Isosorbide Mononitrate ER (Isosorbide Mononitrate) 60 Mg Tab 60 Mg PO DAILY Xanax (Alprazolam) 0.25 Mg Tab 0.25 Mg PO Q8H PRN Sertraline (Sertraline HCl) 50 Mg Tab 50 Mg PO DAILY Ramipril 5 Mg Cap 5 Mg PO DAILY Protonix (Pantoprazole Sodium) 40 Mg Tab 40 Mg PO DAILY Lasix (Furosemide) 40 Mg Tab 40 Mg PO DAILY K-Tab (Potassium Chloride) 20 Meq Tab 20 Meq PO BID Glucophage (Metformin HCl) 1,000 Mg Tab 1,000 Mg PO BIDPC With a meal Flomax (Tamsulosin HCl) 0.4 Mg Cap 0.4 Mg PO HS Vitamin D-3 (Cholecalciferol) 1,000 Unit Tab 2,000 Units PO DAILY Coreg (Carvedilol) 6.25 Mg Tab 3.125 Mg PO BID Novolin R Inj (Insulin Human Regular) 1,000 Unit/10 Ml Vial 0 SQ DIRECTED Sliding Scale As Directed. Magnesium Oxide 400 Mg Tab 400 Mg PO BID B-12 (Cyanocobalamin) 1,000 Mcg Subl 1,000 Mcg SL DAILY Coumadin (Warfarin) 4 Mg Tab 4 Mg PO DIRECTED Review of Systems Except as stated in HPI: all other systems reviewed are Neg Physical Exam Narrative GENERAL: Well-developed, overly nourished, in no acute distress, and non-ill appearing. SKIN: Warm and dry. HEAD: Atraumatic. Normocephalic. EYES: Pupils equal and round. EOMI. No scleral icterus. No injection or drainage. ENT: No nasal bleeding or discharge. Mucous membranes pink and moist. NECK: Trachea midline. Supple. No nuclear rigidity. CARDIOVASCULAR: Regular rate and rhythm. No murmur appreciated. RESPIRATORY: No accessory muscle use. No respiratory distress. Clear to auscultation. Breath sounds equal bilaterally. GASTROINTESTINAL: Abdomen soft, non-tender, nondistended. Hepatic and splenic margins not palpable. Normal bowel sounds 4. No pulsatile mass. MUSCULOSKELETAL: No obvious deformities. No clubbing. No cyanosis. No edema. Full range of motion. Patient reports tenderness around contusion this upper lumbar lower thoracic spine. There is no crepitus or step-off. NEUROLOGICAL: Awake and alert. No obvious cranial nerve deficits. Motor grossly within normal limits. Normal speech. PSYCHIATRIC: Appropriate mood and affect; insight and judgment normal. Data Data Last Documented VS Vital Signs Date Time Temp Pulse Resp B/P Pulse Ox O2 Delivery O2 Flow Rate FiO2 10/26/16 14:18 96.2 68 20 145/68 96 Orders Basic Metabolic Panel (Bmp) (10/26/16 15:36) Complete Blood Count With Diff (10/26/16 15:36) Prothrombin Time / Inr (Pt) (10/26/16 15:36) Act Partial Throm Time (Ptt) (10/26/16 15:36) Ct Abd/Pel W Iv Contrast(Rout) (10/26/16 15:36) Iv Access Insert/Monitor (10/26/16 15:36) Ecg Monitoring (10/26/16 15:36) Oximetry (10/26/16 15:36) Sodium Chloride 0.9% Flush (Ns Flush) (10/26/16 15:45) Ct Brain W/O Iv Contrast(Rout) (10/26/16 ) Ct Cerv Spine W/O Contrast (10/26/16 ) Tramadol (Ultram) (10/26/16 17:00) Iohexol 350 Inj (Omnipaque 350 Inj) (10/26/16 17:48) Labs Laboratory Tests Test 10/26/16 15:53 White Blood Count 8.7 TH/MM3 Red Blood Count 4.61 MIL/MM3 Hemoglobin 12.6 GM/DL Hematocrit 38.2 % Mean Corpuscular Volume 82.7 FL Mean Corpuscular Hemoglobin 27.4 PG Mean Corpuscular Hemoglobin 33.1 % Concent Red Cell Distribution Width 16.5 % Platelet Count 196 TH/MM3 Mean Platelet Volume 9.0 FL Neutrophils (%) (Auto) 70.9 % Lymphocytes (%) (Auto) 19.0 % Monocytes (%) (Auto) 7.4 % Eosinophils (%) (Auto) 2.0 % Basophils (%) (Auto) 0.7 % Neutrophils # (Auto) 6.2 TH/MM3 Lymphocytes # (Auto) 1.6 TH/MM3 Monocytes # (Auto) 0.6 TH/MM3 Eosinophils # (Auto) 0.2 TH/MM3 Basophils # (Auto) 0.1 TH/MM3 CBC Comment DIFF FINAL Differential Comment Prothrombin Time 19.5 SEC Prothromb Time International 1.7 RATIO Ratio Activated Partial 30.3 SEC Thromboplast Time Sodium Level 141 MEQ/L Potassium Level 4.2 MEQ/L Chloride Level 105 MEQ/L Carbon Dioxide Level 30.5 MEQ/L Anion Gap 6 MEQ/L Blood Urea Nitrogen 19 MG/DL Creatinine 0.90 MG/DL Estimat Glomerular Filtration 82 ML/MIN Rate Random Glucose 181 MG/DL Calcium Level 8.2 MG/DL MDM Medical Decision Making Medical Screen Exam Complete: Yes Emergency Medical Condition: Yes Differential Diagnosis Fracture, strain, contusion, splenic liver, liver laceration, kidney laceration , other Narrative Course The patient presented complaining of back pain. There was history of preceding trauma. Evaluation included a CT scan and no obvious fracture or acute disease was noted at this time. The patients evaluation was consistent with soft tissue injury and not consistent with bony injury. The patients neurological exam is normal with normal motor and sensory. There is no saddle paresthesias reported and no bowel or bladder incontinence or retention. Clinical suspicion, plan of care and management was discussed with the patient. The patient was instructed to follow up with their health care provider. The patient was also instructed to return if the pain worsened, changed, or developed weakness or bowel or bladder trouble. The patient agreed with plan. There was no evidence to support genitourinary etiology as well. There is also no evidence to suggest vascular pathology such as AAA dissection. No fevers or other evidence to suspect infectious processes, abscess etc. Patient in no obvious distress upon re-evaluation. All pertinent laboratory/ Radiology result(s) discussed with patient. Discussed patient with Dr. Odonnell , who is in agreement with plan of care and disposition. Any questions/ concerns in reference to patient diagnosis/condition discussed and clarified prior to patient's discharge. Reinforced sheer importance of close follow up with patient's primary physician or primary care clinic. Instructed patient to return to ED immediately, if symptoms return/worsen. Pt showed understanding of above instructions. Further instructions and recommendations were detailed in discharge paperwork. Pt ambulated without difficulty out of ED at discharge. Diagnosis Primary Impression: Back contusion Qualified Code: S20.229A - Back contusion, unspecified laterality, initial encounter Additional Impression: Fall Qualified Code: W19.XXXA - Fall, initial encounter Patient Instructions: Contusion in Adults (ED), General Instructions Additional Instructions: Follow-up with your primary care physician this week for reevaluation. Take your home pain medication as prescribed. Apply ice to affected area 20 minutes per hour as needed for pain. Return to the emergency department if symptoms get worse. Disposition: 01 DISCHARGE HOME Condition: Stable Maurice Machado Oct 26, 2016 15:43
[2016-10-26] MEDS ORDERED: SODIUM CHLORIDE 0.9% FLUSH 5 ML FLUSH IVF PRN (15:45)
[2016-10-26 16:13] LABS: AUTOMATED NEUTROPHIL # 6.2 TH/MM3 (1.8-7.7); BASOPHIL # 0.1 TH/MM3 (0-0.2); BASOPHIL % 0.7 % (0.0-2.0); EOSINOPHIL # 0.2 TH/MM3 (0-0.4); HEMATOCRIT 38.2 % (39.0-51.0); HEMO FLAGS DIFF FINAL; LYMPHOCYTE # 1.6 TH/MM3 (1.0-4.8); MEAN CELL VOLUME 82.7 FL (80.0-100.0); MEAN CORPUSCULAR HEMOGLOBIN 27.4 PG (27.0-34.0); MEAN CORPUSCULAR HGB CONC 33.1 % (32.0-36.0); MONO % 7.4 % (0.0-8.0); NEUT % 70.9 % (16.0-70.0); PLATELET COUNT 196 TH/MM3 (150-450); RED BLOOD COUNT 4.61 MIL/MM3 (4.50-5.90); RED CELL DISTRIBUTION WIDTH 16.5 % (11.6-17.2); WHITE BLOOD COUNT 8.7 TH/MM3 (4.0-11.0)
[2016-10-26 16:34] LABS: BICARBONATE 30.5 MEQ/L (21.0-32.0)
[2016-10-26 16:36] LABS: POTASSIUM 4.2 MEQ/L (3.5-5.1)
[2016-10-26 16:37] LABS: APTT (PATIENT) 30.3 SEC (24.3-30.1); INTERNATIONAL NORMALIZED RATIO 1.7 RATIO; PROTHROMBIN TIME - PATIENT 19.5 SEC (9.8-11.6)
[2016-10-26] MEDS ORDERED: traMADol HCL 50 MG TAB PO ONE (17:00)
--- NOTE | 2016-10-26 17:45 | RADRPT ---
EXAM DATE/TIME: 10/26/2016 17:31 [facility] COMPARISON: CT BRAIN W/O CONTRAST, October 02, 2016, 3:06. INDICATIONS : Fall with head trauma. RADIATION DOSE: 39.17 CTDIvol (mGy) MEDICAL HISTORY : Cardiovascular disease. Cerebrovascular disease. Diabetes mellitus type 2. SURGICAL HISTORY : None. ENCOUNTER: Initial ACUITY: 1 day PAIN SCALE: 3/10 LOCATION: cranial TECHNIQUE: Multiple contiguous axial images were obtained of the head. Using automated exposure control and adjustment of the mA and/or kV according to patient size, radiation dose was kept as low as reasonably achievable to obtain optimal diagnostic quality images. FINDINGS: CEREBRUM: The ventricles are normal for age. No evidence of midline shift, mass lesion, hemorrha ge or acute infarction. No extra-axial fluid collections are seen. POSTERIOR FOSSA: The cerebellum and brainstem are intact. The 4th ventricle is midline. The cer ebellopontine angle is unremarkable. EXTRACRANIAL: The visualized portion of the orbits is intact. SKULL: The calvaria is intact. No evidence of skull fracture. CONCLUSION: Negative for acute process. Allen Roberts MD FACR on October 26, 2016 at 17:43 Board Certified Radiologist. This report was verified electronically.
[2016-10-26] MEDS ORDERED: IOHEXOL 350 MG/ML 10 ML VIAL (for RAD DIAG) IV ONE (17:48)
--- NOTE | 2016-10-26 17:50 | RADRPT ---
EXAM DATE/TIME: 10/26/2016 17:31 [facility] COMPARISON: CT CERVICAL SPINE W/O CONTRAST, June 30, 2016, 8:54. INDICATIONS : Fall with head trauma. RADIATION DOSE: 21.47 CTDIvol (mGy) MEDICAL HISTORY : Cardiovascular disease. Cerebrovascular disease. Diabetes mellitus type 2. SURGICAL HISTORY : None. ENCOUNTER: Initial ACUITY: 1 day PAIN SCALE: 3/10 LOCATION: Neck TECHNIQUE: Volumetric scanning of the cervical spine was performed. Multiplanar reconstructions i n the sagittal, coronal and oblique axial planes were performed. Using automated exposure control a nd adjustment of the mA and/or kV according to patient size, radiation dose was kept as low as reason ably achievable to obtain optimal diagnostic quality images. FINDINGS: Alignment is anatomic in the sagittal and coronal projections. Mild degenerative changes are seen at C1 and C2. C2-C3: The bony spinal canal is normal in size. No evidence of disc bulge or herniation. The neura l foramina are bilaterally patent. C3-C4: Mild uncinate ridging is present on the left. There is no significant spinal stenosis. C4-C5: Moderate uncinate ridging is present with mild bilateral neural foraminal encroachment. There is no evidence for fracture. C5-C6: Moderate uncinate ridging is present with bilateral neural foraminal encroachment. C6-C7: Moderate uncinate ridging is present with moderate left-sided neural foraminal encroachment. C7-T1: The bony spinal canal is normal in size. No evidence of disc bulge or herniation. The neura l foramina are bilaterally patent. CONCLUSION: Degenerative changes, negative for an acute fracture. Allen Roberts MD FACR on October 26, 2016 at 17:46 Board Certified Radiologist. This report was verified electronically.
--- NOTE | 2016-10-26 18:09 | RADRPT ---
EXAM DATE/TIME: 10/26/2016 17:38 [facility] COMPARISON: No previous studies available for comparison. INDICATIONS : Fall with abdominal trauma. IV CONTRAST: 100 cc Omnipaque 350 (iohexol) IV ORAL CONTRAST: No oral contrast ingested. RADIATION DOSE: 15.34 CTDIvol (mGy) MEDICAL HISTORY : Diabetes mellitus type 2. Cerebrovascular disease. Cardiovascular disease SURGICAL HISTORY : None. ENCOUNTER: Initial ACUITY: 1 day PAIN SCALE: 3/10 LOCATION: Bilateral lower quadrant TECHNIQUE: Volumetric scanning of the abdomen and pelvis was performed. Using automated exposure control and ad justment of the mA and/or kV according to patient size, radiation dose was kept as low as reasonably achievable to obtain optimal diagnostic quality images. FINDINGS: LOWER LUNGS: Granulomatous type calcification in the right base. Small right-sided effusion. Left lung is clear. LIVER: Homogeneous density without lesion. There is no dilation of the biliary tree. No calcified gallston es. SPLEEN: Normal size without lesion. PANCREAS: Within normal limits. KIDNEYS: Bilateral renal cortical cysts the largest on the right measuring 4.6 cm in diameter. ADRENAL GLANDS: Within normal limits. VASCULAR: There is no aortic aneurysm. BOWEL/MESENTERY: Diverticular disease of the descending colon without diverticulitis ABDOMINAL WALL: Within normal limits. RETROPERITONEUM: There is no lymphadenopathy. BLADDER: No wall thickening or mass. REPRODUCTIVE: Within normal limits. INGUINAL: There is no lymphadenopathy or hernia. MUSCULOSKELETAL: Levoscoliosis of the lumbar spine associated degenerative changes. No acute fracture. CONCLUSION: 1. Chronic changes with granulomatous type calcification in the right lung base, bilateral renal allan ical cysts and diverticular disease of the colon without diverticulitis. 2. Very small right-sided effusion. 3. No acute visceral trauma or fracture. Castillo Cleveland MD on October 26, 2016 at 18:02 Board Certified Radiologist. This report was verified electronically.
== END 2016-10-26 18:52 | disposition home or self-care (01) ==
LOC: NEDAMB 14:09
DX: S20.229A Contusion of unspecified back wall of thorax, initial encounter (principal); I48.91 Unspecified atrial fibrillation; Z79.01 Long term (current) use of anticoagulants; I50.9 Heart failure, unspecified; J44.9 Chronic obstructive pulmonary disease, unspecified; I25.10 Atherosclerotic heart disease of native coronary artery without angina pectoris; E11.9 Type 2 diabetes mellitus without complications; I10 Essential (primary) hypertension; H54.7 Unspecified visual loss; I25.2 Old myocardial infarction; W01.0XXA Fall on same level from slipping, tripping and stumbling without subsequent striking against object, initial encounter; Y92.009 Unspecified place in unspecified non-institutional (private) residence as the place of occurrence of the external cause
CPT/HCPCS: 70450; 72125; 74177; 80048; 85025; 85610; 85730; 99284; Q9967

== ENCOUNTER 2016-11-03 12:03 | Emergency (ER) | payer OTHER ==
[~2016-11-03] VITALS: Ht 167.6 cm; Wt 85.0 kg
[2016-11-03 12:20] VITALS: BP 83/52; PULSE 83; RESP 18; TEMP 98.4; O2SAT 96
[2016-11-03] MEDS ORDERED: MAGN500T2 PO (12:36)
[2016-11-03] MEDS ORDERED: ASPI1TAB69 PO (12:36)
[2016-11-03] MEDS ORDERED: VITA500T PO (12:39)
[2016-11-03] MEDS ORDERED: TRAV0.00 EACH EYE (12:39)
[2016-11-03] MEDS ORDERED: FOLI800T PO (12:39)
[2016-11-03] MEDS ORDERED: BECL80AE3 INH (12:39)
[2016-11-03] MEDS ORDERED: OMNI1SUS EACH EYE (12:40)
[2016-11-03] MEDS ORDERED: MECL-62 PO (12:40)
[2016-11-03] MEDS ORDERED: TRAM50TA PO (12:40)
[2016-11-03] MEDS ORDERED: VITA100021 SL (12:41)
--- NOTE | 2016-11-03 12:59 | PD ---
HPI Chief Complaint: General Weakness Time Seen by Provider: 12:33 Travel History International Travel<30 days: No Contact w/Intl Traveler<30days: No Traveled to known affect area: No History of Present Illness HPI Patient is a 76-year-old male who presents to the emergency department with his for generalized weakness and multiple falls. Patient has a history of a fall in June 2016 with a subsequent intracranial hemorrhage and concussion according to the . However, patient still currently on Coumadin secondary to history of mechanical valve replacement. According to the the patient fell 1 week ago was seen at [facility] we had multiple CTs performed which were negative according to her report. However, the states that the patient continues to have lethargy, generalized weakness, and occasional increased weakness with falls. The states the patient woke up this morning at 4 AM to use the restroom and fell. He subsequently has fallen several more times at home. The patient's symptoms are moderate, no known alleviating or exacerbating factors. The patient denies any chest pain, shortness breath, headache, neck pain, nausea, vomiting, or abdominal pain. PFSH Past Medical History Hx Anticoagulant Therapy: Yes (COUMADIN) Anemia: Yes Arthritis: Yes Asthma: No Atrial Fibrillation: Yes Autoimmune Disease: No Blood Disorders: No Anxiety: No Depression: No Heart Rhythm Problems: No Cancer: Yes (SKIN CANCER) Cardiac Catheterization: Yes Cardiovascular Problems: Yes (HTN; 7 STENTS; [place]; MECH VALVE) High Cholesterol: Yes Chemotherapy: No Chest Pain: No Congestive Heart Failure: Yes COPD: Yes Cerebrovascular Accident: Yes (TIAS AND CVA ) Coronary Artery Disease: Yes Diabetes: Yes (TYPE 2 ) Diminished Hearing: Yes Endocrine: Yes Gastrointestinal Disorders: Yes (DM, GERD) GERD: Yes Glaucoma: Yes ("GOING BLIND") Genitourinary: No Headaches: Yes Hepatitis: No Hiatal Hernia: No Heparin Induced Thrombocytopen: No Hypertension: Yes Immune Disorder: No Implanted Vascular Access Dvce: Yes Kidney Stones: No Musculoskeletal: Yes Neurologic: Yes Reproductive: No Respiratory: Yes (COPD) Immunizations Current: Yes Migraines: No Myocardial Infarction: Yes (X 3) Radiation Therapy: No Renal Failure: No Seizures: No Shingles: Yes Sickle Cell Disease: No Sleep Apnea: No Thyroid Disease: Yes (THYROID NODULE) Triglycerides - High: Yes Ulcer: Yes PNEUMOCCOCAL Vaccine (Year): 2 Past Surgical History Abdominal Surgery: No AICD: No Appendectomy: No Arteriovenous Shunt: No Body Medical Devices: STENTS X 6 AND MECHANICAL VALVE Cardiac Surgery: Yes (sep 26 2000 aortic valve replacement [facility]) Cholecystectomy: No Coronary Artery Bypass Graft: Yes (TRIPLE BYPASS, REPLACED AORTIC VALVE IN 2000 ) Coronary Stent: Yes (UNKOWN AMOUNT OF STENTS PLACED ? 6) Ear Surgery: No Endocrine Surgery: No Eye Surgery: No Genitourinary Surgery: No Gynecologic Surgery: No Insulin Pump: No Joint Replacement: No Neurologic Surgery: No Oral Surgery: No Pacemaker: No Thoracic Surgery: No Valve Replacement: Yes (AORTIC) Other Surgery: Yes (OPEN HEART SURGERY ,AORTIC VALVE REPLACEMENT 2004) Social History Alcohol Use: No Tobacco Use: No Substance Use: No Allergies-Medications (Allergen,Severity, Reaction): Coded Allergies: Morphine (Verified Allergy, Severe, "I GO CRAZY", 11/03/16) Nonsteroidal Anti-Inflammatory Agts (Verified Allergy, Severe, 11/03/16) CAN NOT TAKE BC HIS KIDNEYS ARE NOT FX CORRECTLY Penicillin (Verified Allergy, Severe, "I GO CRAZY", 11/03/16) Vistaril (Verified Allergy, Severe, Tachycardia, 11/03/16) Haldol (Verified Allergy, Unknown, UNKNOWN, 11/03/16) Codeine (Verified Adverse Reaction, Intermediate, "LOOPY", 11/03/16) MRI PRECAUTION (Verified Adverse Reaction, Unknown, 04/06/04 (ME) PER SARIAH DONOHUE CLEARED PT ( PT CLAUSTO), 11/03/16) Reported Meds & Prescriptions Reported Meds & Active Scripts Active Gabapentin 600 Mg Tab 300 Mg PO TID Reported Vitamin B-12 (Cyanocobalamin) 1,000 Mcg Subl 1,000 Mcg SL DAILY Omnipred Opth Drops (Prednisolone Acetate Opth Drops) 1% Susp 1 Drop EACH EYE BID Meclizine (Meclizine HCl) 25 Mg Tab 25 Mg PO DIRECTED PRN Tramadol (Tramadol HCl) 50 Mg Tab 50 Mg PO Q8H PRN Vitamin C (Ascorbic Acid) 500 Mg Tab 500 Mg PO DAILY Travatan Z Opth Drops (Travoprost) 0.004 % Soln 1 Drop EACH EYE HS Qvar Inh (Beclomethasone Dipropionate) 80 Mcg/Act Aero 2 Puff INH BID Folic Acid 800 Mcg Tab 800 Mcg PO DAILY Aspirin 81 Mg Tabdr 81 Mg PO DAILY Magnesium Oxide 500 Mg Tab 500 Mg PO DAILY Carbidopa-Levodopa 25-100 Mg Tab Warfarin 5 Mg Tab Timolol Opth Drops 0.5 % Soln Nitrostat SL (Nitroglycerin) 0.4 Mg Subl Atorvastatin (Atorvastatin Calcium) 80 Mg Tab 80 Mg PO DAILY Isosorbide Mononitrate ER (Isosorbide Mononitrate) 60 Mg Tab 60 Mg PO DAILY Xanax (Alprazolam) 0.25 Mg Tab 0.25 Mg PO Q8H PRN Sertraline (Sertraline HCl) 50 Mg Tab 50 Mg PO DAILY Ramipril 5 Mg Cap 5 Mg PO DAILY Protonix (Pantoprazole Sodium) 40 Mg Tab 40 Mg PO DAILY Lasix (Furosemide) 40 Mg Tab 40 Mg PO DAILY K-Tab (Potassium Chloride) 20 Meq Tab 20 Meq PO BID Glucophage (Metformin HCl) 1,000 Mg Tab 1,000 Mg PO BIDPC With a meal Flomax (Tamsulosin HCl) 0.4 Mg Cap 0.4 Mg PO HS Vitamin D-3 (Cholecalciferol) 1,000 Unit Tab 5,000 Units PO DAILY Coreg (Carvedilol) 6.25 Mg Tab 3.125 Mg PO BID Novolin R Inj (Insulin Human Regular) 1,000 Unit/10 Ml Vial 0 SQ DIRECTED Sliding Scale As Directed. Coumadin (Warfarin) 4 Mg Tab 4 Mg PO DIRECTED Review of Systems Except as stated in HPI: all other systems reviewed are Neg General / Constitutional: No: Fever Eyes: No: Blurred Vision HENT: No: Headaches, Lightheadedness, Neck Pain Cardiovascular: No: Chest Pain or Discomfort Respiratory: No: Shortness of Breath Gastrointestinal: No: Nausea, Vomiting, Abdominal Pain Genitourinary: No: Dysuria Musculoskeletal: Positive: Weakness Neurologic: Positive: Weakness Physical Exam Narrative GENERAL: Awake, alert, pleasant 76-year-old male who appears his stated age and is in no acute respiratory distress. SKIN: Warm and dry. HEAD: Well-healed scar over the frontal/parietal region. EYES: Pupils equal and round. 2 mm bilateral. ENT: No nasal bleeding or discharge. No upper teeth noted. NECK: Trachea midline. No JVD. CARDIOVASCULAR: Regular rate and rhythm. Holosystolic murmur, click noted. RESPIRATORY: No accessory muscle use. Clear to auscultation. Breath sounds equal bilaterally. GASTROINTESTINAL: Abdomen soft, non-tender, nondistended. No rebound tenderness. MUSCULOSKELETAL: No obvious deformities. No clubbing. No cyanosis. No edema. NEUROLOGICAL: Awake and alert. No obvious cranial nerve deficits. Motor grossly within normal limits. Normal speech. Oriented to person and place. Follow simple commands. PSYCHIATRIC: Appropriate mood and affect; insight and judgment normal. Data Data Last Documented VS Vital Signs Date Time Temp Pulse Resp B/P Pulse Ox O2 Delivery O2 Flow Rate FiO2 11/03/16 15:06 93 11/03/16 14:36 74 16 100/60 11/03/16 13:10 Room Air 11/03/16 12:20 98.4 Orders Electrocardiogram (11/03/16 12:52) Complete Blood Count With Diff (11/03/16 12:52) Comprehensive Metabolic Panel (11/03/16 12:52) Creatine Kinase (Cpk) (11/03/16 12:52) Prothrombin Time / Inr (Pt) (11/03/16 12:52) Act Partial Throm Time (Ptt) (11/03/16 12:52) Troponin I (11/03/16 12:52) Thyroid Stimulating Hormone (11/03/16 12:52) Urinalysis - C+S If Indicated (11/03/16 12:52) Chest, Single Ap (11/03/16 12:52) Ct Brain W/O Iv Contrast(Rout) (11/03/16 12:52) Blood Glucose (11/03/16 12:52) Ecg Monitoring (11/03/16 12:52) Iv Access Insert/Monitor (11/03/16 12:52) Oximetry (11/03/16 12:52) Sodium Chloride 0.9% Flush (Ns Flush) (11/03/16 13:00) Lactic Acid (11/03/16 12:52) Sodium Chlorid 0.9% 500 Ml Inj (Ns 500 M (11/03/16 13:45) Cath For Specimen (11/03/16 14:37) Sodium Chlorid 0.9% 500 Ml Inj (Ns 500 M (11/03/16 15:30) Urine Culture (11/03/16 14:46) Ciprofloxacin 400 Mg Premix (Cipro 400 M (11/03/16 15:45) Labs Laboratory Tests Test 11/03/16 11/03/16 13:34 14:46 White Blood Count 9.0 TH/MM3 Red Blood Count 4.56 MIL/MM3 Hemoglobin 12.4 GM/DL Hematocrit 38.1 % Mean Corpuscular Volume 83.6 FL Mean Corpuscular Hemoglobin 27.3 PG Mean Corpuscular Hemoglobin 32.7 % Concent Red Cell Distribution Width 16.2 % Platelet Count 258 TH/MM3 Mean Platelet Volume 9.1 FL Neutrophils (%) (Auto) 69.2 % Lymphocytes (%) (Auto) 19.1 % Monocytes (%) (Auto) 7.5 % Eosinophils (%) (Auto) 2.8 % Basophils (%) (Auto) 1.4 % Neutrophils # (Auto) 6.2 TH/MM3 Lymphocytes # (Auto) 1.7 TH/MM3 Monocytes # (Auto) 0.7 TH/MM3 Eosinophils # (Auto) 0.3 TH/MM3 Basophils # (Auto) 0.1 TH/MM3 CBC Comment DIFF FINAL Differential Comment Prothrombin Time 23.4 SEC Prothromb Time International 2.1 RATIO Ratio Activated Partial 31.1 SEC Thromboplast Time Sodium Level 143 MEQ/L Potassium Level 3.8 MEQ/L Chloride Level 104 MEQ/L Carbon Dioxide Level 29.6 MEQ/L Anion Gap 9 MEQ/L Blood Urea Nitrogen 20 MG/DL Creatinine 1.10 MG/DL Estimat Glomerular Filtration 65 ML/MIN Rate Random Glucose 167 MG/DL Lactic Acid Level 2.8 mmol/L Calcium Level 8.7 MG/DL Total Bilirubin 0.6 MG/DL Aspartate Amino Transf 20 U/L (AST/SGOT) Alanine Aminotransferase 20 U/L (ALT/SGPT) Alkaline Phosphatase 125 U/L Total Creatine Kinase 74 U/L Troponin I 0.04 NG/ML Total Protein 6.7 GM/DL Albumin 3.0 GM/DL Thyroid Stimulating Hormone 2.730 uIU/ML 3rd Gen Urine Collection Type CATH Urine Color YELLOW Urine Turbidity CLEAR Urine pH 6.0 Urine Specific [place] 1.018 Urine Protein 30 mg/dL Urine Glucose (UA) NEG mg/dL Urine Ketones TRACE mg/dL Urine Occult Blood NEG Urine Nitrite NEG Urine Bilirubin NEG Urine Leukocyte Esterase NEG Urine WBC 3-5 /hpf Urine WBC Clumps OCC Urine Transitional Epithelial 0-5 /hpf Cells Urine Hyaline Casts 20-24 /lpf Urine Coarse Granular Casts 3-5 /lpf Urine Mucus FEW /lpf Microscopic Urinalysis Comment CATH-CULTURE IND Urine Collection Time 14:46 [facility] Medical Decision Making Medical Screen Exam Complete: Yes Emergency Medical Condition: Yes Medical Record Reviewed: Yes Interpretation(s) EKG reveals IV conduction defect with QRS of 122 ms. Sinus rhythm. Nonspecific ST-T wave changes. Last Impressions Head CT 11/03/16 1252 Signed Impressions: Service Date/Time: October 14:59 - CONCLUSION: 1. Moderate microvascular ischemic demyelinative change. No acute intracranial abnormality identified. Stable compared to previous examination dated 10/26/16. Bryce Roberts MD Chest X-Ray 11/03/16 1252 Signed Impressions: Service Date/Time: October 13:05 - CONCLUSION: No acute disease. Felix Fairbanks Jr., MD Laboratory Tests Test 11/03/16 11/03/16 13:34 14:46 White Blood Count 9.0 TH/MM3 Red Blood Count 4.56 MIL/MM3 Hemoglobin 12.4 GM/DL Hematocrit 38.1 % Mean Corpuscular Volume 83.6 FL Mean Corpuscular Hemoglobin 27.3 PG Mean Corpuscular Hemoglobin 32.7 % Concent Red Cell Distribution Width 16.2 % Platelet Count 258 TH/MM3 Mean Platelet Volume 9.1 FL Neutrophils (%) (Auto) 69.2 % Lymphocytes (%) (Auto) 19.1 % Monocytes (%) (Auto) 7.5 % Eosinophils (%) (Auto) 2.8 % Basophils (%) (Auto) 1.4 % Neutrophils # (Auto) 6.2 TH/MM3 Lymphocytes # (Auto) 1.7 TH/MM3 Monocytes # (Auto) 0.7 TH/MM3 Eosinophils # (Auto) 0.3 TH/MM3 Basophils # (Auto) 0.1 TH/MM3 CBC Comment DIFF FINAL Differential Comment Prothrombin Time 23.4 SEC Prothromb Time International 2.1 RATIO Ratio Activated Partial 31.1 SEC Thromboplast Time Sodium Level 143 MEQ/L Potassium Level 3.8 MEQ/L Chloride Level 104 MEQ/L Carbon Dioxide Level 29.6 MEQ/L Anion Gap 9 MEQ/L Blood Urea Nitrogen 20 MG/DL Creatinine 1.10 MG/DL Estimat Glomerular Filtration 65 ML/MIN Rate Random Glucose 167 MG/DL Lactic Acid Level 2.8 mmol/L Calcium Level 8.7 MG/DL Total Bilirubin 0.6 MG/DL Aspartate Amino Transf 20 U/L (AST/SGOT) Alanine Aminotransferase 20 U/L (ALT/SGPT) Alkaline Phosphatase 125 U/L Total Creatine Kinase 74 U/L Troponin I 0.04 NG/ML Total Protein 6.7 GM/DL Albumin 3.0 GM/DL Thyroid Stimulating Hormone 2.730 uIU/ML 3rd Gen Urine Collection Type CATH Urine Color YELLOW Urine Turbidity CLEAR Urine pH 6.0 Urine Specific [place] 1.018 Urine Protein 30 mg/dL Urine Glucose (UA) NEG mg/dL Urine Ketones TRACE mg/dL Urine Occult Blood NEG Urine Nitrite NEG Urine Bilirubin NEG Urine Leukocyte Esterase NEG Urine WBC 3-5 /hpf Urine WBC Clumps OCC Urine Transitional Epithelial 0-5 /hpf Cells Urine Hyaline Casts 20-24 /lpf Urine Coarse Granular Casts 3-5 /lpf Urine Mucus FEW /lpf Microscopic Urinalysis Comment CATH-CULTURE IND Urine Collection Time 14:46 Differential Diagnosis Differential diagnosis includes subdural hemorrhage, intracranial hemorrhage, subarachnoid hemorrhage, hyponatremia, dehydration, UTI, pneumonia, deconditioning. Narrative Course IV was established, labs are drawn and sent, and the patient was placed on cardiac telemetry monitoring and continuous pulse oximetry monitoring. EKG was ordered and interpreted. CT of the brain was ordered. Chest x-ray was obtained. Chest x-ray is unremarkable. CT of the brain is negative. 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 Patient was dehydrated with initial low blood pressure that did respond 500 cc normal saline, systolic came up above 100. The normal saline bolus was repeated and then the patient was attempted to ambulate with a walker. The patient was able to walk with a walker with good results. I do discussion with the family regarding keeping the patient for PT evaluation possible placement versus outpatient home health care PT. The would like to follow-up with her doctor for referral for outpatient PT. 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 The patient's blood pressure was 130/67 of 4:40 PM. Patient is stable for outpatient follow-up. The patient is also advised to have a follow-up PT/INR as he will be placed on Cipro and is currently taking Coumadin. The patient's Coumadin level was 2.1, should be 2.5-3.5 with mechanical valve. Diagnosis Primary Impression: UTI (urinary tract infection) Qualified Code: N30.00 - Acute cystitis without hematuria Additional Impression: Dehydration Patient Instructions: General Instructions Additional Instructions: Medications as directed. Follow-up with her primary physician. Please provide the patient and his family a copy of the CT results, UA results, and lab results at discharge. Follow-up with your primary physician for a referral to physical therapy. Med/Other Pt SpecificInfo: Prescription(s) given Scripts Ciprofloxacin (Cipro)500 Mg [id number] Mg PO BID 7 Days Ref 0 Prov:Augie Everett MD 11/03/16 Disposition: 01 DISCHARGE HOME Condition: Stable Augie Everett MD Nov 03, 2016 12:59
[2016-11-03] MEDS ORDERED: SODIUM CHLORIDE 0.9% FLUSH 5 ML FLUSH IVF PRN (13:00)
[2016-11-03 13:10] VITALS: BP 91/51; PULSE 78; RESP 20; O2SAT 98
--- NOTE | 2016-11-03 13:33 | RADHPO ---
EXAM DATE/TIME: 11/03/2016 13:05 [facility] COMPARISON: CHEST SINGLE AP, October 02, 2016, 2:52. INDICATIONS : Syncopal episode.Left side weakness & falls. MEDICAL HISTORY : Diabetes mellitus type II. Hypercholesterolemia. Hypertension. Thyroid nodule. TIA. CVA. GA. CHF . CAD. A-fib. COPD. Ulcer. GERD. Arthitis. Skin Cancer. SURGICAL HISTORY : CABG. Aortic valve replacment. Cardiac catheterization w/ stent placement. ENCOUNTER: Initial ACUITY: 1 day PAIN SCORE: 0/10 LOCATION: chest FINDINGS: A single view of the chest demonstrates the lungs to be symmetrically aerated without evidence of mas s, infiltrate or effusion. A calcified granuloma is seen within the right base. The cardiomediastinal contours are unremarkable. Median sternotomy wires noted. CONCLUSION: No acute disease. Felix Fairbanks Jr., MD on November 03, 2016 at 13:31 Board Certified Radiologist. This report was verified electronically.
[2016-11-03 13:43] LABS: AUTOMATED NEUTROPHIL # 6.2 TH/MM3 (1.8-7.7); BASOPHIL # 0.1 TH/MM3 (0-0.2); BASOPHIL % 1.4 % (0.0-2.0); EOSINOPHIL # 0.3 TH/MM3 (0-0.4); EOSINOPHIL % 2.8 % (0.0-4.0); HEMATOCRIT 38.1 % (39.0-51.0); HEMO FLAGS DIFF FINAL; LYMPH % 19.1 % (9.0-44.0); LYMPHOCYTE # 1.7 TH/MM3 (1.0-4.8); MEAN CELL VOLUME 83.6 FL (80.0-100.0); MEAN CORPUSCULAR HEMOGLOBIN 27.3 PG (27.0-34.0); MEAN CORPUSCULAR HGB CONC 32.7 % (32.0-36.0); MONO % 7.5 % (0.0-8.0); NEUT % 69.2 % (16.0-70.0); PLATELET COUNT 258 TH/MM3 (150-450); RED BLOOD COUNT 4.56 MIL/MM3 (4.50-5.90); RED CELL DISTRIBUTION WIDTH 16.2 % (11.6-17.2)
[2016-11-03] MEDS ORDERED: SODIUM CHLORID 0.9% 500 ML INJ 500 ML IV ONE ×2 (13:45→15:30)
[2016-11-03 14:03] LABS: CHLORIDE 104 MEQ/L (98-107); POTASSIUM 3.8 MEQ/L (3.5-5.1); SODIUM (NA) 143 MEQ/L (136-145)
[2016-11-03 14:08] LABS: ANION GAP 9 MEQ/L (5-15); APTT (PATIENT) 31.1 SEC (24.3-30.1); BICARBONATE 29.6 MEQ/L (21.0-32.0); BLOOD UREA NITROGEN 20 MG/DL (7-18); INTERNATIONAL NORMALIZED RATIO 2.1 RATIO; PROTHROMBIN TIME - PATIENT 23.4 SEC (9.8-11.6)
[2016-11-03 14:11] LABS: ALT (GPT) 20 U/L (12-78); AST (GOT) 20 U/L (15-37); GLOMERULAR FILTRATION RATE 65 ML/MIN (>89)
[2016-11-03 14:13] LABS: TOTAL BILIRUBIN ADULT 0.6 MG/DL (0.2-1.0)
[2016-11-03 14:14] LABS: ALKALINE PHOSPHATASE 125 U/L (45-117)
[2016-11-03 14:19] LABS: CREATINE KINASE 74 U/L (39-308)
[2016-11-03 14:36] VITALS: BP 100/60; PULSE 74; RESP 16; O2SAT 93
[2016-11-03 15:06] VITALS: O2SAT 93
[2016-11-03 15:20] LABS: BLOOD, URINE NEG (NEG); GLUCOSE,URINE NEG (NEG); KETONE, URINE TRACE mg/dL (NEG); NITRITE,URINE NEG (NEG)
--- NOTE | 2016-11-03 15:22 | RADHPO ---
EXAM DATE/TIME: 11/03/2016 14:59 [facility] COMPARISON: CT BRAIN W/O CONTRAST, October 26, 2016, 17:31. CT ABDOMEN & PELVIS W CONTRAST, October 26, 2016, 17:38. INDICATIONS : Altered mental status. General weakness and multiple falls since last night. RADIATION DOSE: 63.79 CTDIvol (mGy) MEDICAL HISTORY : Cerebrovascular disease. Chronic obstructive pulmonary disease. Myocardial infarction.Congestive hear t failure. Diabetes. SURGICAL HISTORY : None. ENCOUNTER: Initial ACUITY: 1 day PAIN SCALE: 0/10 LOCATION: cranial TECHNIQUE: Multiple contiguous axial images were obtained of the head. Using automated exposure control and adj ustment of the mA and/or kV according to patient size, radiation dose was kept as low as reasonably a chievable to obtain optimal diagnostic quality images. FINDINGS: CEREBRUM: The ventricles are normal for age. There is moderate microvascular ischemic demyelinative change. No evidence of midline shift, mass lesion, hemorrhage or acute infarction. No extra-axial fluid collec tions are seen. POSTERIOR FOSSA: The cerebellum and brainstem are intact. The 4th ventricle is midline. The cerebellopontine angle i s unremarkable. EXTRACRANIAL: The visualized portion of the orbits is intact. SKULL: The calvaria is intact. No evidence of skull fracture. CONCLUSION: 1. Moderate microvascular ischemic demyelinative change. No acute intracranial abnormality identified . Stable compared to previous examination dated 10/26/16. Bryce Roberts MD on November 03, 2016 at 15:18 Board Certified Radiologist. This report was verified electronically.
[2016-11-03 15:30] LABS: METHOD OF COLLECTION CATH; URINE COLOR YELLOW (YELLW/STRAW)
[2016-11-03 15:31] LABS: COMMENT (UR) CATH-CULTURE IND; CULTURE IF INDICATED CATH CULTURE IND; MUCUS URINE FEW /lpf (OCC); TRANSITIONAL EPI CELLS, URINE 0-5 /hpf
[2016-11-03] MEDS ORDERED: CIPROFLOXACIN 400 MG PREMIX 200 ML IV ONE (15:45)
[2016-11-03 16:42] VITALS: BP 130/67; PULSE 60; RESP 16; O2SAT 98
[2016-11-03] MEDS ORDERED: CIPR-9 PO (16:43)
--- NOTE | 2016-11-04 17:14 | EKG ---
Date Performed: 11/03/2016 Time Performed: 12:59:36 PTAGE: 76 years EKG: Irregular ectopic atrial rhythm IV conduction defect Possible anterior infarct - age undete rmined Inferior/lateral ST-T changes are nonspecific Compared to prior tracing no significant change Abnormal ECG PREVIOUS TRACING : 10/02/2016 23.13 DOCTOR: Filippo Lopez Interpretating Date/Time 11/04/2016 17:02:26
== END 2016-11-03 17:41 | disposition home or self-care (01) ==
LOC: PHED 12:03
DX: N39.0 Urinary tract infection, site not specified (principal); E86.0 Dehydration; I48.91 Unspecified atrial fibrillation; E78.00 Pure hypercholesterolemia, unspecified; J44.9 Chronic obstructive pulmonary disease, unspecified; E11.9 Type 2 diabetes mellitus without complications; I10 Essential (primary) hypertension; Z95.2 Presence of prosthetic heart valve; Z95.818 Presence of other cardiac implants and grafts; Z79.4 Long term (current) use of insulin; Z79.01 Long term (current) use of anticoagulants; Z91.81 History of falling; Z87.820 Personal history of traumatic brain injury
CPT/HCPCS: 70450; 71010; 80053; 81001; 82550; 83605; 84443; 84484; 85025; 85610; 85730; 87086; 93005; 96361; 96365; 99285; J0744; J7040; P9612

== ENCOUNTER 2017-02-23 17:08 | Emergency (ER) | payer OTHER ==
[~2017-02-23] VITALS: Ht 172.7 cm; Wt 89.0 kg
[~2017-02-23 17:08] MED LIST changes: +ASPI1TAB69 PO; +BECL80AE3 INH; +CIPR-9 PO; -CYAN100025 SL; +FOLI800T PO; -MAGN400T2 PO; +MAGN500T2 PO; +MECL-62 PO; +OMNI1SUS EACH EYE; -POTA20TA5; +TRAM50TA PO; +TRAV0.00 EACH EYE; +VITA100021 SL; +VITA500T PO; -[UNRECOGNIZED DRUG - OTHER]
[2017-02-23 18:37] VITALS: BP 194/104; PULSE 71; RESP 18; TEMP 99.4; O2SAT 96
[2017-02-23 18:42] VITALS: BP 194/111; PULSE 72; RESP 18; O2SAT 96
--- NOTE | 2017-02-23 18:43 | PD ---
HPI Chief Complaint: Flank/Kidney Pain Time Seen by Provider: 18:33 Travel History International Travel<30 days: No Contact w/Intl Traveler<30days: No Traveled to known affect area: No History of Present Illness HPI 77-year-old male with history of A. fib on Coumadin, brought in by EMS from home for evaluation of bilateral lower extremity pain and right flank pain. Patient has had these symptoms for the last 2 days. Bilateral leg pain is at the calves. He denies trauma. No chest pain or dyspnea. No abdominal pain. No dysuria, urinary retention, or urinary incontinence. The patient's arrived shortly after the patient arrived to the emergency department and tells me that the patient fell about a week ago and is concerned that he may have hit his head and is on Coumadin. PFSH Past Medical History Hx Anticoagulant Therapy: Yes (COUMADIN) Anemia: Yes Arthritis: Yes Asthma: No Atrial Fibrillation: Yes Autoimmune Disease: No Blood Disorders: No Anxiety: No Depression: No Heart Rhythm Problems: No Cancer: Yes (SKIN CANCER) Cardiac Catheterization: Yes Cardiovascular Problems: Yes (HTN; 7 STENTS; [place]; MECH VALVE) High Cholesterol: Yes Chemotherapy: No Chest Pain: No Congestive Heart Failure: Yes COPD: Yes Cerebrovascular Accident: Yes (TIAS AND CVA ) Coronary Artery Disease: Yes Diabetes: Yes (TYPE 2 ) Diminished Hearing: Yes Endocrine: Yes Gastrointestinal Disorders: Yes (DM, GERD) GERD: Yes Glaucoma: Yes ("GOING BLIND") Genitourinary: No Headaches: Yes Hepatitis: No Hiatal Hernia: No Heparin Induced Thrombocytopen: No Hypertension: Yes Immune Disorder: No Implanted Vascular Access Dvce: Yes Kidney Stones: No Musculoskeletal: Yes Neurologic: Yes Reproductive: No Respiratory: Yes (COPD) Immunizations Current: Yes Migraines: No Myocardial Infarction: Yes (X 3) Radiation Therapy: No Renal Failure: No Seizures: No Shingles: Yes Sickle Cell Disease: No Sleep Apnea: No Thyroid Disease: Yes (THYROID NODULE) Triglycerides - High: Yes Ulcer: Yes PNEUMOCCOCAL Vaccine (Year): 2 Past Surgical History Abdominal Surgery: No AICD: No Appendectomy: No Arteriovenous Shunt: No Body Medical Devices: STENTS X 6 AND MECHANICAL VALVE Cardiac Surgery: Yes (sep 26 2000 aortic valve replacement [facility]) Cholecystectomy: No Coronary Artery Bypass Graft: Yes (TRIPLE BYPASS, REPLACED AORTIC VALVE IN 2000 ) Coronary Stent: Yes (UNKOWN AMOUNT OF STENTS PLACED ? 6) Ear Surgery: No Endocrine Surgery: No Eye Surgery: No Genitourinary Surgery: No Gynecologic Surgery: No Insulin Pump: No Joint Replacement: No Neurologic Surgery: No Oral Surgery: No Pacemaker: No Thoracic Surgery: No Valve Replacement: Yes (AORTIC) Other Surgery: Yes (OPEN HEART SURGERY ,AORTIC VALVE REPLACEMENT 2004) Social History Alcohol Use: No Tobacco Use: No Substance Use: No Allergies-Medications (Allergen,Severity, Reaction): Coded Allergies: Morphine (Verified Allergy, Severe, "I GO CRAZY", 11/03/16) Nonsteroidal Anti-Inflammatory Agts (Verified Allergy, Severe, 11/03/16) CAN NOT TAKE BC HIS KIDNEYS ARE NOT FX CORRECTLY Penicillin (Verified Allergy, Severe, "I GO CRAZY", 11/03/16) Vistaril (Verified Allergy, Severe, Tachycardia, 11/03/16) Haldol (Verified Allergy, Unknown, UNKNOWN, 11/03/16) Codeine (Verified Adverse Reaction, Intermediate, "LOOPY", 11/03/16) MRI PRECAUTION (Verified Adverse Reaction, Unknown, 04/06/04 (ME) PER SARIAH DONOHUE CLEARED PT ( PT CLAUSTO), 11/03/16) Reported Meds & Prescriptions Reported Meds & Active Scripts Active Cipro (Ciprofloxacin HCl) 500 Mg Tab 500 Mg PO BID 7 Days Gabapentin 600 Mg Tab 300 Mg PO TID Reported Vitamin B-12 (Cyanocobalamin) 1,000 Mcg Subl 1,000 Mcg SL DAILY Omnipred Opth Drops (Prednisolone Acetate Opth Drops) 1% Susp 1 Drop EACH EYE BID Meclizine (Meclizine HCl) 25 Mg Tab 25 Mg PO DIRECTED PRN Tramadol (Tramadol HCl) 50 Mg Tab 50 Mg PO Q8H PRN Travatan Z Opth Drops (Travoprost) 0.004 % Soln 1 Drop EACH EYE HS Qvar Inh (Beclomethasone Dipropionate) 80 Mcg/Act Aero 2 Puff INH BID Folic Acid 800 Mcg Tab 800 Mcg PO DAILY Magnesium Oxide 500 Mg Tab 500 Mg PO DAILY Carbidopa-Levodopa 25-100 Mg Tab Warfarin 5 Mg Tab Timolol Opth Drops 0.5 % Soln Nitrostat SL (Nitroglycerin) 0.4 Mg Subl Atorvastatin (Atorvastatin Calcium) 80 Mg Tab 80 Mg PO DAILY Isosorbide Mononitrate ER (Isosorbide Mononitrate) 60 Mg Tab 60 Mg PO DAILY Xanax (Alprazolam) 0.25 Mg Tab 0.25 Mg PO Q8H PRN Sertraline (Sertraline HCl) 50 Mg Tab 50 Mg PO DAILY Ramipril 5 Mg Cap 5 Mg PO DAILY Protonix (Pantoprazole Sodium) 40 Mg Tab 40 Mg PO DAILY Lasix (Furosemide) 40 Mg Tab 40 Mg PO DAILY K-Tab (Potassium Chloride) 20 Meq Tab 20 Meq PO BID Glucophage (Metformin HCl) 1,000 Mg Tab 1,000 Mg PO BIDPC With a meal Flomax (Tamsulosin HCl) 0.4 Mg Cap 0.4 Mg PO HS Coreg (Carvedilol) 6.25 Mg Tab 3.125 Mg PO BID Novolin R Inj (Insulin Human Regular) 1,000 Unit/10 Ml Vial 0 SQ DIRECTED Sliding Scale As Directed. Coumadin (Warfarin) 4 Mg Tab 4 Mg PO DIRECTED Review of Systems Except as stated in HPI: all other systems reviewed are Neg Physical Exam Narrative GENERAL: Well-developed, well-nourished, awake, alert, comfortable, no acute distress. SKIN: Focused skin assessment warm/dry. No lacerations, abrasions, or ecchymosis. HEAD: Atraumatic. Normocephalic. EYES: Pupils equal and round. No scleral icterus. No injection or drainage. ENT: No nasal bleeding or discharge. Mucous membranes pink and moist. NECK: Trachea midline. No JVD. CARDIOVASCULAR: Regular rate and rhythm. RESPIRATORY: No accessory muscle use. Clear to auscultation. Breath sounds equal bilaterally. GASTROINTESTINAL: Abdomen soft, non-tender, nondistended. MUSCULOSKELETAL: No obvious deformities. No clubbing. No cyanosis. Mild right CVA tenderness and mild midline lumbar spine tenderness without step-off. Normal range of motion in all joints and extremities. Moderate bilateral lower extremity edema from foot to knee. No calf tenderness. NEUROLOGICAL: Awake and alert. No obvious cranial nerve deficits. Motor grossly within normal limits. Normal speech. Normal muscle strength in all 4 extremities. Great toe extension present bilaterally. No saddle anesthesia. PSYCHIATRIC: Appropriate mood and affect; insight and judgment normal. Data Data Last Documented VS Vital Signs Date Time Temp Pulse Resp B/P Pulse Ox O2 Delivery O2 Flow Rate FiO2 6/8/17 19:15 18 96 Room Air 02/23/17 18:42 72 194/111 02/23/17 18:37 99.4 Orders Complete Blood Count With Diff (02/23/17 18:37) Comprehensive Metabolic Panel (02/23/17 18:37) Lipase (02/23/17 18:37) Prothrombin Time / Inr (Pt) (02/23/17 18:37) Act Partial Throm Time (Ptt) (02/23/17 18:37) Urinalysis - C+S If Indicated (02/23/17 18:37) Ct Abd/Pel W Iv Contrast(Rout) (02/23/17 18:37) Iv Access Insert/Monitor (02/23/17 18:37) Ecg Monitoring (02/23/17 18:37) Oximetry (02/23/17 18:37) Sodium Chloride 0.9% Flush (Ns Flush) (02/23/17 18:45) Us Leg Venous Doppler Bilat (02/23/17 ) B-Type Natriuretic Peptide (02/23/17 18:37) Chest, Single Ap (02/23/17 ) Tramadol (Ultram) (02/23/17 18:45) Ct Lumb Spine W/O Contrast (02/23/17 ) Ct Brain W/O Iv Contrast(Rout) (02/23/17 ) Iohexol 350 Inj (Omnipaque 350 Inj) (02/23/17 20:14) Labs Laboratory Tests Test 02/23/17 02/23/17 19:00 20:30 White Blood Count 8.1 TH/MM3 Red Blood Count 4.50 MIL/MM3 Hemoglobin 12.0 GM/DL Hematocrit 37.0 % Mean Corpuscular Volume 82.3 FL Mean Corpuscular Hemoglobin 26.6 PG Mean Corpuscular Hemoglobin 32.3 % Concent Red Cell Distribution Width 14.7 % Platelet Count 186 TH/MM3 Mean Platelet Volume 8.9 FL Neutrophils (%) (Auto) 57.6 % Lymphocytes (%) (Auto) 27.8 % Monocytes (%) (Auto) 8.8 % Eosinophils (%) (Auto) 5.6 % Basophils (%) (Auto) 0.2 % Neutrophils # (Auto) 4.7 TH/MM3 Lymphocytes # (Auto) 2.2 TH/MM3 Monocytes # (Auto) 0.7 TH/MM3 Eosinophils # (Auto) 0.5 TH/MM3 Basophils # (Auto) 0.0 TH/MM3 CBC Comment DIFF FINAL Differential Comment Prothrombin Time 24.3 SEC Prothromb Time International 2.1 RATIO Ratio Activated Partial 30.6 SEC Thromboplast Time Sodium Level 144 MEQ/L Potassium Level 3.5 MEQ/L Chloride Level 106 MEQ/L Carbon Dioxide Level 28.0 MEQ/L Anion Gap 10 MEQ/L Blood Urea Nitrogen 17 MG/DL Creatinine 0.87 MG/DL Estimat Glomerular Filtration 86 ML/MIN Rate Random Glucose 143 MG/DL Calcium Level 8.2 MG/DL Total Bilirubin 0.4 MG/DL Aspartate Amino Transf 18 U/L (AST/SGOT) Alanine Aminotransferase 23 U/L (ALT/SGPT) Alkaline Phosphatase 112 U/L B-Type Natriuretic Peptide 164 PG/ML Total Protein 6.0 GM/DL Albumin 2.9 GM/DL Lipase 86 U/L Urine Color YELLOW Urine Turbidity CLEAR Urine pH 7.0 Urine Specific Matthews 1.032 Urine Protein 30 mg/dL Urine Glucose (UA) NEG mg/dL Urine Ketones NEG mg/dL Urine Occult Blood NEG Urine Nitrite NEG Urine Bilirubin NEG Urine Urobilinogen LESS THAN 2.0 MG/DL Urine Leukocyte Esterase NEG Urine RBC 1 /hpf Urine WBC 1 /hpf Microscopic Urinalysis Comment CULT NOT INDICATED MDM Medical Decision Making Medical Screen Exam Complete: Yes Emergency Medical Condition: Yes Differential Diagnosis Vertebral fracture, UTI, pyelonephritis, cystitis, nephrolithiasis, ureterolithiasis, intracranial trauma, DVT, CHF/fluid overload Narrative Course Initial vital signs show heart rate 71, blood pressure 194/104, pulse ox 96% on room air, oral temp of 99.4F. CBC shows WBC 8.1, hemoglobin 12, hematocrit 37, platelets 186. CMP is remarkable for random glucose 143, albumin 2.9, total protein 6, otherwise unremarkable. BNP is 164. UA shows 30 protein, not suggestive of UTI. Bilateral lower extremity venous duplex: CONCLUSION: Normal examination. CT brain: CONCLUSION: Chronic ischemic findings an old insults. No definite new acute findings. CT abdomen pelvis: CONCLUSION: Stable CT appearance of the abdomen and pelvis. No acute findings. CT lumbar spine: CONCLUSION: Severe diffuse degenerative changes. No significant change from prior exam. The patient and the patient's were made aware of all findings. He is resting comfortably. There are no physical exam findings to suggest cord compression. I believe most of his symptoms are secondary to his arthritis. He is stable for discharge home with outpatient follow-up with his primary care physician this week. He was informed on when to return to the emergency department. With the patient and the patient's verbalize understanding and agreement with plan. Diagnosis Primary Impression: Osteoarthritis Qualified Code: M47.9 - Osteoarthritis of spine, unspecified spinal osteoarthritis complication status, unspecified spinal region Additional Impressions: Low back pain Qualified Code: M54.5 - Low back pain without sciatica, unspecified back pain laterality, unspecified chronicity Bilateral leg edema Referrals: Primary Care Physician 3 days Additional Instructions: Follow-up with your primary care physician this week. Return to the emergency department for worsening symptoms or any other concerns. Scripts Hydrocodone-Acetaminophen (Lortab)5-325 Mg Tab1 Tab PO Q6H PRN (PAIN) #12 TAB Ref 0 Prov:James Atkins MD 02/23/17 Disposition: 01 DISCHARGE HOME Condition: Stable James Atkins MD Feb 23, 2017 18:43
[2017-02-23] MEDS ORDERED: traMADol HCL 50 MG TAB PO ONE (18:45)
[2017-02-23] MEDS ORDERED: SODIUM CHLORIDE 0.9% FLUSH 10 ML FLUSH IV FLUSH PRN (18:45)
--- NOTE | 2017-02-23 19:08 | RADRPT ---
EXAM DATE/TIME: 02/23/2017 18:38 [facility] COMPARISON: CHEST SINGLE AP, November 03, 2016, 13:05. INDICATIONS : Short of breath. MEDICAL HISTORY : Diabetes mellitus type II. Hypercholesterolemia. Hypertension. Thyroid SURGICAL HISTORY : CABG. Aortic valve replacment. Cardiac catheterization w/ stent placement. ENCOUNTER: Initial ACUITY: 2 days PAIN SCORE: 0/10 LOCATION: Bilateral chest FINDINGS: A calcified granuloma is again noted over the right lower lobe. There is no definite evidence of foca l infiltrate or pleural effusion. Cardiac contours are grossly stable accounting for differences in r otation. Sternotomy wires are present. CONCLUSION: Stable chest with no acute disease Cole Meza MD on February 23, 2017 at 19:05 Board Certified Radiologist. This report was verified electronically.
[2017-02-23 19:15] VITALS: RESP 18; O2SAT 96
[2017-02-23 19:16] LABS: AUTOMATED NEUTROPHIL # 4.7 TH/MM3 (1.8-7.7); BASOPHIL % 0.2 % (0.0-2.0); EOSINOPHIL # 0.5 TH/MM3 (0-0.4); EOSINOPHIL % 5.6 % (0.0-4.0); HEMO FLAGS DIFF FINAL; LYMPH % 27.8 % (9.0-44.0); LYMPHOCYTE # 2.2 TH/MM3 (1.0-4.8); MEAN CELL VOLUME 82.3 FL (80.0-100.0); MEAN CORPUSCULAR HEMOGLOBIN 26.6 PG (27.0-34.0); MEAN CORPUSCULAR HGB CONC 32.3 % (32.0-36.0); MONO % 8.8 % (0.0-8.0); NEUT % 57.6 % (16.0-70.0); PLATELET COUNT 186 TH/MM3 (150-450); RED CELL DISTRIBUTION WIDTH 14.7 % (11.6-17.2); WHITE BLOOD COUNT 8.1 TH/MM3 (4.0-11.0)
[2017-02-23 19:24] LABS: APTT (PATIENT) 30.6 SEC (24.3-30.1); INTERNATIONAL NORMALIZED RATIO 2.1 RATIO; PROTHROMBIN TIME - PATIENT 24.3 SEC (9.8-11.6)
[2017-02-23 19:47] LABS: ANION GAP 10 MEQ/L (5-15); AST (GOT) 18 U/L (15-37); BLOOD UREA NITROGEN 17 MG/DL (7-18); CHLORIDE 106 MEQ/L (98-107); GLOMERULAR FILTRATION RATE 86 ML/MIN (>89); POTASSIUM 3.5 MEQ/L (3.5-5.1); SODIUM (NA) 144 MEQ/L (136-145)
[2017-02-23 19:48] LABS: ALT (GPT) 23 U/L (12-78)
[2017-02-23 19:51] LABS: ALKALINE PHOSPHATASE 112 U/L (45-117); TOTAL BILIRUBIN ADULT 0.4 MG/DL (0.2-1.0)
--- NOTE | 2017-02-23 20:13 | RADRPT ---
EXAM DATE/TIME: 02/23/2017 19:26 [facility] COMPARISON: No previous studies available for comparison. INDICATIONS : Bilateral leg swelling and pain. MEDICAL HISTORY : Myocardial infarction. Congestive heart failure. Hypercholesterolemia. Thyroid nodule. Glaucoma. Hear ing loss. Cerebrovascular accident. Coronary artery disease. Anticoagulant therapy. Hyperlipidemia. H ypertension. COPD. Afib. Ulcer. Gastroesophageal reflux disease. Diabetes. Anemia. Skin cancer. Blood transfusion. AAA. Shingles. Enlarged prostate. SURGICAL HISTORY : CABGCoronary artery stent. Aortic valve replacement. ENCOUNTER: Initial ACUITY: 1 day PAIN SCORE: 3/10 LOCATION: Bilateral legs. TECHNIQUE: Venous ultrasound of the left and right leg was performed from the inguinal ligament to the proximal calf. Real-time, color Doppler and spectral tracing, compression and augmentation techniques were us ed. FINDINGS: RIGHT LEG: There is normal compressibility of the deep venous system from the inguinal region to the proximal ca lf. No echogenic clot is seen in the lumen of the common femoral, femoral, popliteal, and posterior tibial veins. There is a normal response of the venous system to proximal and distal augmentation an d respiration. LEFT LEG: There is normal compressibility of the deep venous system from the inguinal region to the proximal ca lf. No echogenic clot is seen in the lumen of the common femoral, femoral, popliteal, and posterior tibial veins. There is a normal response of the venous system to proximal and distal augmentation an d respiration. CONCLUSION: Normal examination. Cole Meza MD on February 23, 2017 at 20:11 Board Certified Radiologist. This report was verified electronically.
[2017-02-23] MEDS ORDERED: IOHEXOL 350 MG/ML 10 ML VIAL (for RAD DIAG) IV ONE (20:14)
--- NOTE | 2017-02-23 20:25 | RADRPT ---
EXAM DATE/TIME: 02/23/2017 19:59 [facility] COMPARISON: CT BRAIN W/O CONTRAST, November 03, 2016, 14:59. INDICATIONS : Altered mental status. RADIATION DOSE: ?64.98 CTDIvol (mGy) MEDICAL HISTORY : Cardiovascular disease. Aneurysm, abdominal. Hypertension.diabetic,COPD,anemia SURGICAL HISTORY : CABG ENCOUNTER: Initial ACUITY: 1 day PAIN SCALE: 0/10 LOCATION: cranial TECHNIQUE: Multiple contiguous axial images were obtained of the head. Using automated exposure control and adj ustment of the mA and/or kV according to patient size, radiation dose was kept as low as reasonably a chievable to obtain optimal diagnostic quality images. FINDINGS: There has been interval evolution of a lacunar infarct involving the left lentiform nucleus. Stable a ppearance of present elsewhere. Patchy periventricular white matter hypodensity is grossly stable. Th ere is no evidence of intracranial mass or hemorrhage. There is nothing to specifically indicate acut e infarction. The extracranial structures are benign and intact. CONCLUSION: Chronic ischemic findings an old insults. No definite new acute findings. Cole Meza MD on February 23, 2017 at 20:21 Board Certified Radiologist. This report was verified electronically.
[2017-02-23 20:55] LABS: BLOOD, URINE NEG (NEG); COMMENT (UR) CULT NOT INDICATED; CULTURE IF INDICATED CULT NOT INDICATED; GLUCOSE,URINE NEG (NEG); KETONE, URINE NEG (NEG); NITRITE,URINE NEG (NEG); URINE COLOR YELLOW (YELLW/STRAW)
--- NOTE | 2017-02-23 20:57 | RADRPT ---
EXAM DATE/TIME: 02/23/2017 20:05 [facility] COMPARISON: CT ABDOMEN & PELVIS W CONTRAST, October 26, 2016, 17:38. INDICATIONS : Right flank pain for 2 days. IV CONTRAST: 67 cc Omnipaque 350 (iohexol) IV ; Cumulative dose for multiple exams. ORAL CONTRAST: No oral contrast ingested. RADIATION DOSE: 15.51 CTDIvol (mGy) MEDICAL HISTORY : Cardiovascular disease. Aneurysm, abdominal. Hypertension.diabetic,COPD,anemia SURGICAL HISTORY : CABG ENCOUNTER: Initial ACUITY: 1 day PAIN SCALE: 5/10 LOCATION: Right lower quadrant TECHNIQUE: Volumetric scanning of the abdomen and pelvis was performed. Using automated exposure control and ad justment of the mA and/or kV according to patient size, radiation dose was kept as low as reasonably achievable to obtain optimal diagnostic quality images. FINDINGS: LOWER LUNGS: The visualized lower lungs are clear. LIVER: Homogeneous density without lesion. There is no dilation of the biliary tree. No calcified gallston es. SPLEEN: Normal size without lesion. PANCREAS: Within normal limits. KIDNEYS: Bilateral renal cysts. No evidence of hydronephrosis. No stones. ADRENAL GLANDS: Stable prominence of the right adrenal. VASCULAR: There is no aortic aneurysm. BOWEL/MESENTERY: The stomach, small bowel, and colon demonstrate no acute abnormality. There is no free intraperitone al air or fluid. ABDOMINAL WALL: Within normal limits. RETROPERITONEUM: There is no lymphadenopathy. BLADDER: No wall thickening or mass. REPRODUCTIVE: Prostate is enlarged. No evidence of pelvic mass or free fluid. INGUINAL: There is no lymphadenopathy or hernia. MUSCULOSKELETAL: Within normal limits for patient age. CONCLUSION: Stable CT appearance of the abdomen and pelvis. No acute findings. Cole Meza MD on February 23, 2017 at 20:52 Board Certified Radiologist. This report was verified electronically.
--- NOTE | 2017-02-23 21:00 | RADRPT ---
EXAM DATE/TIME: 02/23/2017 20:05 [facility] COMPARISON: CT LUMBAR SPINE W/O CONTRAST, July 29, 2016, 15:33. INDICATIONS : Right flank pain for 2 days. RADIATION DOSE: 15.51 CTDIvol (mGy) ; Reconstructed from previous dataset MEDICAL HISTORY : Aneurysm, abdominal. Cardiovascular disease Hypertension.diabetic,COPD, anemia SURGICAL HISTORY : CABG ENCOUNTER: Initial ACUITY: 1 day PAIN SCALE: 5/10 LOCATION: Right lower quadrant TECHNIQUE: Volumetric scanning of the lumbar spine was performed. Multiplanar reconstructions in the sagittal, coronal and oblique axial planes were performed. Using automated exposure control and adjustment of the mA and/or kV according to patient size, radiation dose was kept as low as reasonably achievable t o obtain optimal diagnostic quality images. FINDINGS: Mild scoliotic curvature is unchanged. There is no evidence of fracture comment destructive change or other new acute bony process. Severe degenerative changes present throughout with disc space narrowi ng and endplate osteophytes throughout. Posterior facet arthropathy throughout. No evidence of parasp inal mass or hematoma. CONCLUSION: Severe diffuse degenerative changes. No significant change from prior exam. Cole Meza MD on February 23, 2017 at 20:55 Board Certified Radiologist. This report was verified electronically.
[2017-02-23] MEDS ORDERED: HYDR-3533 PO (21:11)
[2017-02-23 21:19] VITALS: BP 141/68; TEMP 98.8
== END 2017-02-23 21:46 | disposition home or self-care (01) ==
LOC: NEPD 17:08
DX: M47.9 Spondylosis, unspecified (principal); M54.5 Low back pain; R60.0 Localized edema; M79.662 Pain in left lower leg; M79.661 Pain in right lower leg; E11.9 Type 2 diabetes mellitus without complications; I10 Essential (primary) hypertension; E78.5 Hyperlipidemia, unspecified; Z79.01 Long term (current) use of anticoagulants; Z79.4 Long term (current) use of insulin; Z86.2 Personal history of diseases of the blood and blood-forming organs and certain disorders involving the immune mechanism; Z87.39 Personal history of other diseases of the musculoskeletal system and connective tissue; Z86.79 Personal history of other diseases of the circulatory system; Z87.09 Personal history of other diseases of the respiratory system; Z87.19 Personal history of other diseases of the digestive system; Z86.69 Personal history of other diseases of the nervous system and sense organs
CPT/HCPCS: 70450; 71010; 72131; 74177; 80053; 81001; 83690; 83880; 85025; 85610; 85730; 93970; 99285; Q9967